=== PATIENT | male | born 1950 | race Caucasian/White ===

== ENCOUNTER 2018-03-26 16:35 | Inpatient (IN) | payer MEDICARE, OTHER ==
[~2018-03-26] VITALS: Ht 170.2 cm; Wt 90.4 kg
[2018-03-26] MEDS ORDERED: ASPIRIN 81 MG TAB PO STA (19:53)
[2018-03-26] MEDS ORDERED: SOD CHLORIDE 0.9% 500 ML IV STA (19:53)
--- NOTE | 2018-03-26 20:06 | ERD ---
ER Documentation Chief Complaint Chief Complaint Dr. Austin cunningham: 'TIA, chills, BP, constipation'. pt denies sx HPI This is a 67-year-old male who was sent by Dr. Wilkinson for admission. The patient was in [place] for 1 month and flew back 3 days ago and on the airplane developed hypertension with a systolic blood pressure of 230. Is having some dizziness and blurry vision at the time no chest pain or difficulty breathing. Since being home he is felt generalized weakness and malaise. No documented fevers. No cough, no dysuria no abdominal pain. The patient was sent by his physician for TIA, chills, loss of taste and confusion ROS All systems reviewed and are negative except as per history of present illness. Medications Home Meds Reported Medications Exenatide Microspheres (Bydureon Bcise) 2 Mg/0.85 Ml Auto.injct, 2 MG SQ Q7D LAST INJECTION 20 DAYS AGO 03/26/18 Amlodipine Besylate* (Amlodipine Besylate*) 10 Mg Tablet, 10 MG PO DAILY, #30 TAB 03/26/18 Insulin Glargine,Hum.rec.anlog ([place] Arzateostar) 300 Unit/1 Ml Insuln.pen, 100 UNIT SQ QHS, EA 03/26/18 Linaclotide (LINZESS) 145 Mcg Capsule, 145 MCG PO DAILY, #30 CAP 03/26/18 Mbgilf-Jutwguxw-Qmhwoyd* (Joey KU* 24,000) 24,000 L-76,000-120,000 Unit Capsule.dr, 1 CAP PO WITH MEALS, CAP 03/26/18 Sitagliptin Phos/Metformin HCl (Janumet 50-1,000 mg Tablet) 1 Each Tablet, 1 EACH PO DAILY, TAB 03/26/18 Memantine* (Namenda*) 5 Mg Tablet, 5 MG PO DAILY, #30 TAB 03/26/18 Rosuvastatin Calcium* (Crestor*) 10 Mg Tablet, 10 MG PO QHS, #30 TAB 03/26/18 Insulin Aspart* (Novolog Insulin Pen*) 100 Unit/Ml Soln, 30 UNIT SC WITH MEALS, EA 03/26/18 Clonidine Patch (CLONIDINE PATCH) Unknown Strength Patch, 1 PATCH TD Q7D, #4 PATCH.WK 03/26/18 Losartan-Hydrochlorothiazide (Losartan-HCTZ) 100-25 Mg Tab, 1 TAB PO DAILY, TAB 03/26/18 Terazosin Hcl* (Terazosin Hcl*) 5 Mg Capsule, 5 MG PO Q OTHER DAY, CAP 03/26/18 Spironolactone* (Aldactone*) 50 Mg Tablet, 50 MG PO BID, #60 TAB 03/26/18 Metoprolol Tartrate* (Lopressor*) 25 Mg Tab, 25 MG PO BID, #60 TAB 03/26/18 Allergies Allergies: Coded Allergies: No Known Allergy (Unverified , 03/26/18) PMhx/Soc History of Surgery: Yes (prostate) Hx Cardiac Disorders: Yes (HTN) Hx Miscellaneous Medical Probl: Yes (DM, gastritis) Hx Alcohol Use: Yes (occasional) Hx Substance Use: No Hx Tobacco Use: Yes Smoking Status: Former smoker FmHx Family History: No coronary disease Physical Exam Vitals Vital Signs Date Temp Pulse Resp B/P (MAP) Pulse Ox O2 O2 Flow FiO2 Time Delivery Rate 03/26/18 80 17 158/78 97 Room Air 21:12 (104) 03/26/18 83 22 166/84 98 Room Air 19:49 (111) 03/26/18 97.5 85 16 145/71 95 16:55 (95) Physical Exam Const: Well-developed, well-nourished Head: Atraumatic, normocephalic Eyes: Normal Conjunctiva, PERRLA, EOMI, normal sclera, no nystagmus ENT: Normal External Ears, Nose and Mouth, moist mucus membranes. Neck: Full range of motion. No meningismus, no lymphadenopathy. Resp: Clear to auscultation bilaterally, no wheezing, rhonchi, rales Cardio: Regular rate and rhythm, no murmurs, S1 S2 present Abd: Soft, non tender x 4, non distended. Normal bowel sounds, no guarding or rebound, no pulsitile abdominal masses or bruits Skin: No petechiae or rashes, no ecchymosis , no maculopapular rash Back: No midline or flank tenderness Ext: No cyanosis, or edema, FROM x 4, normal inspection, neurovascularly intact x 4 Neur: Awake and alert, STR 5/5 x 4, sensation intact x 4, no focal findings, cerebellum intact Psych: Normal Mood and Affect Result Diagram: 03/26/18199903/26/181999 Results 24 hrs Laboratory Tests Test 03/26/18 20:00 03/26/18 21:06 White Blood Count 9.5 10^3/ul Red Blood Count 5.12 10^6/ul Hemoglobin 14.5 g/dl Hematocrit 44.8 % Mean Corpuscular Volume 87.5 fl Mean Corpuscular Hemoglobin 28.3 pg Mean Corpuscular Hemoglobin Concent 32.4 g/dl Red Cell Distribution Width 13.9 % Platelet Count 242 10^3/UL Mean Platelet Volume 11.3 fl Immature Granulocytes % 1.500 % Neutrophils % 63.1 % Lymphocytes % 23.1 % Monocytes % 10.5 % Eosinophils % 1.1 % Basophils % 0.7 % Nucleated Red Blood Cells % 0.0 /100WBC Immature Granulocytes # 0.140 10^3/ul Neutrophils # 6.0 10^3/ul Lymphocytes # 2.2 10^3/ul Monocytes # 1.0 10^3/ul Eosinophils # 0.1 10^3/ul Basophils # 0.1 10^3/ul Nucleated Red Blood Cells # 0.0 10^3/ul Prothrombin Time 13.1 Sec Prothrombin Time Ratio 1.0 INR International Normalized Ratio 0.98 Activated Partial Thromboplast Time 23.1 Sec Urine Color YELLOW Urine Clarity CLEAR Urine pH 5.0 Urine Specific [place] 1.014 Urine Ketones NEGATIVE mg/dL Urine Nitrite NEGATIVE mg/dL Urine Bilirubin NEGATIVE mg/dL Urine Urobilinogen NEGATIVE mg/dL Urine Leukocyte Esterase NEGATIVE [place]/ul Urine Microscopic RBC 1 /HPF Urine Microscopic WBC 4 /HPF Urine Hemoglobin 1+ mg/dL Urine Glucose 3+ mg/dL Urine Total Protein 2+ mg/dl Sodium Level 135 mmol/L Potassium Level 5.0 mmol/L Chloride Level 95 mmol/L Carbon Dioxide Level 26 mmol/L Anion Gap 14 Blood Urea Nitrogen 38 mg/dl Creatinine 2.29 mg/dl Est Glomerular Filtrat Rate mL/min 29 mL/min Glucose Level 465 mg/dl Calcium Level 9.5 mg/dl Total Bilirubin 0.0 mg/dl Direct Bilirubin 0.00 mg/dl Indirect Bilirubin 0.0 mg/dl Aspartate Amino Transf (AST/SGOT) 37 IU/L Alanine Aminotransferase (ALT/SGPT) 23 IU/L Alkaline Phosphatase 98 IU/L Troponin I 0.052 ng/ml Total Protein 7.1 g/dl Albumin 3.9 g/dl Globulin 3.20 g/dl Albumin/Globulin Ratio 1.21 Bedside Glucose 435 mg/dL Current Medications Medications Dose Sig/Rex Start Time Status Last (Trade) Ordered Route PRN Stop Time Admin Dose Reason Admin Sodium 500 ml @ Q1H STAT 03/26/18 DC 03/26/18 Chloride 500 mls/hr IV 19:53 20:19 03/26/18 20:52 Aspirin 162 mg ONCE STAT 03/26/18 DC 03/26/18 (Aspirin) PO 19:53 20:19 03/26/18 19:56 Insulin 12 unit ONCE ONCE 03/26/18 DC 03/26/18 Human SC 21:00 21:08 Lispro 03/26/18 21:01 (Humalog) Procedures/MDM MR #: [id number] DOS: 03/26/181952 Ordering MD: MEHNAZ KRISHNAN DO Location: E/R Room/Bed: PROCEDURE: Portable chest x-ray. CLINICAL INDICATION: 67 years of age, male. Possible stroke TECHNIQUE: Portable AP view of the chest. COMPARISON: None available. FINDINGS: Medical devices: None. Mediastinum: Cardiomediastinal contours are normal. Lungs: Lung volumes are decreased with vascular crowding. There are nonspecific opacities at bilateral lung bases. Nodular opacity in the right lower lung zone likely represents a benign granuloma. Pleura: Negative for pleural effusion or pneumothorax. Bones: No acute bony abnormality. there are degenerative changes in the thoracic spine. Additional comment: None. IMPRESSION: Decreased lung volumes. Nonspecific opacities at bilateral lung bases may represent atelectasis, aspiration or pneumonia. RPTAT: HCTS Physician Bipin Date Time Electronically viewed and signed by Physician Bipin on 03/26/2018 20:21 CS/ CC: MEHNAZ KRISHNAN DO [id number] Patient: PRESTON KINSEY : 1950 Age: 67 Sex: M MR #: [id number] DOS: 03/26/181952 Ordering MD: MEHNAZ KRISHNAN DO Location: E/R Room/Bed: PROCEDURE: CT Brain without contrast. CLINICAL INDICATION: Stroke TECHNIQUE: A CT of the brain was performed on a multidetector CT scanner utilizing axial imaging from the skull base through the vertex without IV contrast. Multiplanar reformatted images were made. Images were reviewed on a PACS workstation. The CTDIvol is 38 mGy and the DLP is 634 mGycm. DICOM images are available. One or more of the following dose reduction techniques were utilized: 1.) Automated exposure control 2.) Adjustment of the mA +/- kV according to patient's size 3.) Use of iterative reconstruction technique. COMPARISON: None FINDINGS: There is moderate diffuse cerebral volume loss with sulcal and ventricular dilatation. No discrete extra-axial fluid collection or masses seen. Ventricles are in the midline and of normal configuration. There is periventricular and subcortical white matter disease in both cerebral hemispheres. No associated mass effect is present. There is preservation of normal whitten-white differentiat ion. No intracranial hemorrhage is seen. There is normal aeration in the visualized paranasal sinuses. IMPRESSION: Atrophy. White matter disease compatible with chronic small vessel ischemia. No intracranial hemorrhage, mass or evidence of acute transcortical infarct. .Vance Lawton MD, MD Date Time Electronically viewed and signed by .Vance Lawton MD, MD on 03/26/2018 20:14 .A/ CC: MEHNAZ KRISHNAN DO [id number] EKG: Rate/Rhythm: Normal sinus rhythm with PVCs, LVH QRS, ST, QT: NORMAL ND, QRS, prolonged QT] Impression: Abnormal EKG Patient's primary care physician will admit for observation for generalized weakness, prerenal azotemia, hypertension Departure Diagnosis: Primary Impression: Hyperglycemia Additional Impressions: Dehydration Generalized weakness Condition: Stable MEHNAZ KRISHNAN DO Mar 26, 2018 20:06
[2018-03-26] MEDS ORDERED: INSULIN LISPRO 100 UNIT/ML VIAL SC ONE (21:00)
[2018-03-26] MEDS ORDERED: SPIR50TA PO (21:09)
[2018-03-26] MEDS ORDERED: METO-448 PO (21:09)
[2018-03-26] MEDS ORDERED: LOSA1TAB25 PO (21:10)
[2018-03-26] MEDS ORDERED: TERA5CAP3 PO (21:10)
[2018-03-26] MEDS ORDERED: NOVO3I SC (21:12)
[2018-03-26] MEDS ORDERED: CLON1PAT2 TD (21:12)
[2018-03-26] MEDS ORDERED: MEMA5TAB PO (21:13)
[2018-03-26] MEDS ORDERED: ROSU10TA55 PO (21:13)
[2018-03-26] MEDS ORDERED: LIPA1CAP6 PO (21:14)
[2018-03-26] MEDS ORDERED: SITA1TAB5 PO (21:14)
[2018-03-26] MEDS ORDERED: LINA145C PO (21:14)
[2018-03-26] MEDS ORDERED: AMLO-147 PO (21:15)
[2018-03-26] MEDS ORDERED: INSU300I SQ (21:15)
[2018-03-26] MEDS ORDERED: EXEN2AUT SQ (21:17)
[2018-03-26] MEDS ORDERED: SOD CHLORIDE 0.9% 1,000 ML IV SCH (21:51)
[2018-03-26] MEDS ORDERED: ACETAMINOPHEN 325 MG TAB PO PRN (22:00)
[2018-03-26] MEDS ORDERED: ONDANSETRON 4 MG INJ IV PRN (22:00)
[2018-03-26 23:13] VITALS: PULSE 67
[2018-03-26 23:30] VITALS: Ht 170.2 cm; Wt 90.4 kg
[2018-03-26] MEDS ORDERED: CLONIDINE 0.2 MG/24 HR PATCH TRANSDERM SCH (23:30)
[2018-03-26] MEDS: DOCUSATE SODIUM 100 MG CAP PO SCH (23:30)
--- NOTE | 2018-03-26 23:45 | NUR ---
Pt came to the unit via bed from ER. Pt is alert and oriented x 4. Denies pain. No resp distress noted. On IVF. Called and spoke with Dr Menjivar. He said to just place the s/s mod and he will do the rest. Ok to change diet to CCHO and 2 gram Na.
[2018-03-27] VITALS (7 sets, daily range): BP systolic 118–150; BP diastolic 63–90; PULSE 71–78; RESP 18–20
[2018-03-27] MEDS ORDERED: DEXTROSE 50% 50 ML SYRINGE IV PRN ×2
[2018-03-27] MEDS ORDERED: GLUCOSE GEL 15 GRAM TUBE BUCCAL PRN
[2018-03-27] MEDS ORDERED: GLUCAGON 1 MG INJ IM PRN
[2018-03-27] MEDS ORDERED: GLUCOSE GEL 15 GRAM TUBE PO PRN ×2
--- NOTE | 2018-03-27 02:58 | NUR ---
Pt stated he had BM last noc. Voiding adequately. Verbalized he's so hungry. Given food as per pt's request. Bp imporved. Gave his Catapres patch. BP improved from earlier. Will continue monitor. Pt sleeping comfortably.
--- NOTE | 2018-03-27 07:41 | CONS ---
Assessment/Plan Assessment/Plan Assessment/Plan Consult dictated 1. Suspect underlying chronic renal failure sec to nephrosclerosis or diabetic renal dz, degree of proteinuria will help understand. 2. Acute renal failure sec to accelerated HBP or vol contraction. 3. Hx prostatism and related surgery, will r/o obstructive component 4. DM 5. HBP, now controlled. Consultation Date/Type/Reason Admit Date/Time Mar 26, 2018 at 21:52 Type of Consult Nephrology Date/Time of Note DATE: 03/27/18 TIME: 07:39 Past Medical History Home Meds Reported Medications Exenatide Microspheres (Bydureon Bcise) 2 Mg/0.85 Ml Auto.injct, 2 MG SQ Q7D LAST INJECTION 20 DAYS AGO 03/26/18 Amlodipine Besylate* (Amlodipine Besylate*) 10 Mg Tablet, 10 MG PO DAILY, #30 TAB 03/26/18 Insulin Glargine,Hum.rec.anlog ([place] Solostar) 300 Unit/1 Ml Insuln.pen, 100 UNIT SQ QHS, EA 03/26/18 Linaclotide (LINZESS) 145 Mcg Capsule, 145 MCG PO DAILY, #30 CAP 03/26/18 Lwpdia-Lmoyauvu-Whgzjma* (Joey KU* 24,000) 24,000 L-76,000-120,000 Unit Capsule., 1 CAP PO WITH MEALS, CAP 03/26/18 Sitagliptin Phos/Metformin HCl (Janumet 50-1,000 mg Tablet) 1 Each Tablet, 1 EACH PO DAILY, TAB 03/26/18 Memantine* (Namenda*) 5 Mg Tablet, 5 MG PO DAILY, #30 TAB 03/26/18 Rosuvastatin Calcium* (Crestor*) 10 Mg Tablet, 10 MG PO QHS, #30 TAB 03/26/18 Insulin Aspart* (Novolog Insulin Pen*) 100 Unit/Ml Soln, 30 UNIT SC WITH MEALS, EA 03/26/18 Clonidine Patch (CLONIDINE PATCH) Unknown Strength Patch, 1 PATCH TD Q7D, #4 PATCH.WK 03/26/18 Losartan-Hydrochlorothiazide (Losartan-HCTZ) 100-25 Mg Tab, 1 TAB PO DAILY, TAB 03/26/18 Terazosin Hcl* (Terazosin Hcl*) 5 Mg Capsule, 5 MG PO Q OTHER DAY, CAP 03/26/18 Spironolactone* (Aldactone*) 50 Mg Tablet, 50 MG PO BID, #60 TAB 03/26/18 Metoprolol Tartrate* (Lopressor*) 25 Mg Tab, 25 MG PO BID, #60 TAB 03/26/18 Medications Current Medications Sodium Chloride 1,000 ml @ 80 mls/hr [id number] IV Last administered on 03/26/18at 21:51; Admin Dose 80 MLS/HR; Start 03/26/18 at 21:51; Stop 03/27/18 at 10:20 Ondansetron HCl (Zofran Inj) 4 mg ER BRIDGE PRN IV nausea; Start 03/26/18 at 22:00; Stop 03/27/18 at 21:59 Acetaminophen (Tylenol Tab) 650 mg ER BRIDGE PRN PO fever; Start 03/26/18 at 22:00; Stop 03/27/18 at 21:59 Insulin Aspart (Novolog Insulin Pen) NOVOLOG *MODERATE* ALGORITHM WITH MEALS BEDTIME SC ; Start 03/27/18 at 08:00 Clonidine HCl (Catapres-Tts 2 Patch) 1 patch Q7D TRANSDERM Last administered on 03/27/18at 00:41; Admin Dose 1 PATCH; Start 03/26/18 at 23:30 Diltiazem HCl (Cardizem Cd) 120 mg DAILY PO ; Start 03/27/18 at 09:00 Aspirin (Ecotrin) 325 mg DAILY PO ; Start 03/27/18 at 09:00 Docusate Sodium (Colace) 100 mg BID PO ; Start 03/26/18 at 23:30 Gabapentin (Neurontin) 200 mg TID PO ; Start 03/27/18 at 09:00 Hydralazine HCl (Apresoline) 25 mg Q8H PRN PO ELEVATED SYSTOLIC BP; Start 03/26/18 at 23:30 Miscellaneous Information 1 ea NOTE XX ; Start 03/27/18 at 00:00 Glucose (Glutose) 15 gm Q15M PRN PO DECREASED GLUCOSE; Start 03/27/18 at 00:00 Glucose (Glutose) 22.5 gm Q15M PRN PO DECREASED GLUCOSE; Start 03/27/18 at 00:00 Dextrose (D50w Syringe) 25 ml Q15M PRN IV DECREASED GLUCOSE; Start 03/27/18 at 00:00 Dextrose (D50w Syringe) 50 ml Q15M PRN IV DECREASED GLUCOSE; Start 03/27/18 at 00:00 Glucagon (Glucagen) 1 mg Q15M PRN IM DECREASED GLUCOSE; Start 03/27/18 at 00:00 Glucose (Glutose) 15 gm Q15M PRN BUCCAL DECREASED GLUCOSE; Start 03/27/18 at 00:00 Allergies: Coded Allergies: No Known Allergy (Unverified , 03/26/18) Social History Smoking Status: Former smoker Exam/Review of Systems Vital Signs Vitals Vital Signs Date Temp Pulse Resp B/P (MAP) Pulse Ox O2 O2 Flow FiO2 Time Delivery Rate 03/27/18 97.9 78 20 150/90 94 Room Air 07:23 (110) Intake and Output 03/26/18 03/26/18 03/27/18 1414:59 22:59 06:59 IntakeIntake Total 500 ml 1240 ml BalanceBalance 500 ml 1240 ml Labs Result Diagram: 03/26/18199903/26/181999 Results 24hrs Laboratory Tests Test 03/26/18 20:00 03/26/18 21:06 White Blood Count 9.5 Red Blood Count 5.12 Hemoglobin 14.5 Hematocrit 44.8 Mean Corpuscular Volume 87.5 Mean Corpuscular Hemoglobin 28.3 L Mean Corpuscular Hemoglobin Concent 32.4 Red Cell Distribution Width 13.9 Platelet Count 242 Mean Platelet Volume 11.3 H Immature Granulocytes % 1.500 H Neutrophils % 63.1 Lymphocytes % 23.1 Monocytes % 10.5 Eosinophils % 1.1 Basophils % 0.7 Nucleated Red Blood Cells % 0.0 Immature Granulocytes # 0.140 H Neutrophils # 6.0 Lymphocytes # 2.2 Monocytes # 1.0 H Eosinophils # 0.1 Basophils # 0.1 Nucleated Red Blood Cells # 0.0 Prothrombin Time 13.1 Prothrombin Time Ratio 1.0 INR International Normalized Ratio 0.98 Activated Partial Thromboplast Time 23.1 Urine Color YELLOW Urine Clarity CLEAR Urine pH 5.0 Urine Specific [place] 1.014 Urine Ketones NEGATIVE Urine Nitrite NEGATIVE Urine Bilirubin NEGATIVE Urine Urobilinogen NEGATIVE Urine Leukocyte Esterase NEGATIVE Urine Microscopic RBC 1 Urine Microscopic WBC 4 Urine Hemoglobin 1+ H Urine Glucose 3+ H Urine Total Protein 2+ H Sodium Level 135 Potassium Level 5.0 Chloride Level 95 L Carbon Dioxide Level 26 Anion Gap 14 H Blood Urea Nitrogen 38 H Creatinine 2.29 H Est Glomerular Filtrat Rate mL/min 29 L Glucose Level 465 *H Calcium Level 9.5 Total Bilirubin 0.0 L Direct Bilirubin 0.00 Indirect Bilirubin 0.0 Aspartate Amino Transf (AST/SGOT) 37 Alanine Aminotransferase (ALT/SGPT) 23 Alkaline Phosphatase 98 Troponin I 0.052 Total Protein 7.1 Albumin 3.9 Globulin 3.20 Albumin/Globulin Ratio 1.21 Bedside Glucose 435 *H LIN LYNNE MD Mar 27, 2018 07:41
[2018-03-27] MEDS: INSULIN ASPART [NOVOLOG] 3 ML PEN SC SCH ×4 (08:08→20:30)
--- NOTE | 2018-03-27 08:26 | CONS ---
DATE OF ADMISSION: 03/26/2018 DATE OF CONSULTATION: 03/27/[address] Ackerman: Thank you very much for allowing me to evaluate this patient, who admitted with dizziness and blurred vision as well as accompanying weakness with evidence of renal insufficiency. HISTORICAL EVENTS: As you well know, the patient returned from a trip to [facility] 3 days ago while on the airplane developed dizziness and some blurred vision as well as some mild shortness of breath an d weakness. He was evaluated by you in your office yesterday and you thought hospitalization was nee ded. It is also mentioned that his blood pressure was elevated to the level of 230 systolic, unclear as to when that occurred. In any event, because of impaired renal function, you requested an evalua tion. Presently, he denies cough, wheezing, shortness of breath, nausea, vomiting, abdominal pain, o r chest pain. Appetite is slightly reduced over the last 2 to 3 days. He has had no dysuria, hematu genna, flank pain. PAST MEDICAL HISTORY: Includes; 1. Hypertension of long duration. 2. Diabetes of similarly long duration. 3. History of prostatism, undergoing surgery for the same about 3 years ago. 4. Hyperlipidemia. 5. History of gastritis. 6. History of coronary artery disease. SOCIAL HISTORY: Former smoker. He does drink alcohol. PHYSICAL EXAMINATION: VITAL SIGNS: Blood pressure 150/90, pulse 96, respirations were 18. He was afebrile. EYES: Extraocular muscles were full. NOSE, MOUTH, AND THROAT: Normal. NECK: Supple without jugular venous distention, thyroid enlargement or adenopathy. Carotids 2+, no bruits. LUNGS: Clear. HEART: Rhythm regular, no murmur. No third or fourth sound. ABDOMEN: Nontender. Liver and spleen were not palpable. No mass or tenderness were noted. EXTREMITIES: No edema. Calves were nontender. Pulses were reduced but feet were warm bilaterally. LABORATORY AND DIAGNOSTIC STUDIES: On admission, hematocrit was 44.8, white count was normal as was platelet count. Chemistries, electrolytes unrevealing, BUN 38, creatinine 2.29. Sugar 465. Liver t ests and albumin were normal. Pro-time and PTT were normal. Urinalysis 1+ blood, 3+ sugar, 2+ prote in. IMAGING STUDIES: Chest x-ray: No CHF. CT of the brain, white matter disease compatible with chroni c small vessel ischemia, no hemorrhage. IMPRESSIONS: 1. I suspect he has underlying mild renal insufficiency secondary to nephrosclerosis or diabetic jed al disease. The magnitude of proteinuria will help determine which is contributing or both. 2. Acute renal failure, either secondary to accelerated hypertension or volume contraction and obstr uctive component will be excluded. 3. Hypertension, controlled, much improved. PLAN: We will continue present IVs. Urinary protein albumin/creatinine ratio will be obtained along with random urinary sodium. Renal and postvoid bladder ultrasound has also been obtained. Dictated By: LIN LYNNE MD MR/NTS Conf#: [id number] DID#: [id number] CC: LESLY ACKERMAN MD;*EndCC*
[2018-03-27] MEDS ORDERED: DILTIAZEM (CD) 120 MG CAP PO SCH (09:00)
[2018-03-27] MEDS ORDERED: ASPIRIN (EC) 325 MG TAB PO SCH (09:00)
[2018-03-27] MEDS ORDERED: DILTIAZEM (CD) 180 MG CAP PO SCH (09:00)
[2018-03-27] MEDS: DOCUSATE SODIUM 100 MG CAP PO SCH ×2 (09:33→20:32)
[2018-03-27] MEDS: GABAPENTIN 100 MG CAP PO SCH ×3 (09:33→20:32)
--- NOTE | 2018-03-27 11:23 | CONS ---
Assessment/Plan Assessment/Plan Hospital Course (Demo Recall) HTN urgency: BP here 160s but up to 230 recently. Will restart home meds Acute on chronic renal failure: Last known Cr to me was 1.4 from labs 2017. On admission 2.3 and improved with 2.0. Likely dehydration due to poor PO intake and HCTZ DM HTN -restart home meds including: -amlodipine 10mg -losartan 100mg (should be ok as renal function improving) -hold HCTZ -continue metoprolol 25mg BID, d/c diltiazem -continue clonidine patch -continue IVF Consultation Date/Type/Reason Admit Date/Time Mar 26, 2018 at 21:52 Date of Consultation: Mar 27, 2018 Type of Consult Cardiology Reason for Consultation HTN urgency Requesting Provider: LESLY ACKERMAN MD Date/Time of Note DATE: 03/27/18 TIME: 11:15 Hx of Present Illness 67 yo M known to me from clinic visit 05/2017, with a h/o DM, HTN, CKD (previous Cr 1.4 in 2017), who presented with weakness, elevated BP. He was found to have acute on chronic renal failure. His BP has been 160s but he was recently traveling and his BP on the airplane was 230s. He notes that he has not had much of an appetite as food has been tasting strange recently. He also has not been drinking much fluid. He is on HCTZ at home. He feels better. Denies any current chest pain, SOB, edema. His Cr has improved from 2.3 to 2.0 with IVF. per hPI Past Medical History per hPI Home Meds Reported Medications Exenatide Microspheres (Bydureon Bcise) 2 Mg/0.85 Ml Auto.injct, 2 MG SQ Q7D LAST INJECTION 20 DAYS AGO 03/26/18 Amlodipine Besylate* (Amlodipine Besylate*) 10 Mg Tablet, 10 MG PO DAILY, #30 TAB 03/26/18 Insulin Glargine,Hum.rec.anlog (Nimo Guardado) 300 Unit/1 Ml Insuln.pen, 100 UNIT SQ QHS, EA 03/26/18 Linaclotide (LINZESS) 145 Mcg Capsule, 145 MCG PO DAILY, #30 CAP 03/26/18 Hcaqnj-Qczfguhr-Amulteh* (Joey DR* 24,000) 24,000 L-76,000-120,000 Unit Capsule.dr, 1 CAP PO WITH MEALS, CAP 03/26/18 Sitagliptin Phos/Metformin HCl (Janumet 50-1,000 mg Tablet) 1 Each Tablet, 1 EACH PO DAILY, TAB 03/26/18 Memantine* (Namenda*) 5 Mg Tablet, 5 MG PO DAILY, #30 TAB 03/26/18 Rosuvastatin Calcium* (Crestor*) 10 Mg Tablet, 10 MG PO QHS, #30 TAB 03/26/18 Insulin Aspart* (Novolog Insulin Pen*) 100 Unit/Ml Soln, 30 UNIT SC WITH MEALS, EA 03/26/18 Clonidine Patch (CLONIDINE PATCH) Unknown Strength Patch, 1 PATCH TD Q7D, #4 PATCH.WK 03/26/18 Losartan-Hydrochlorothiazide (Losartan-HCTZ) 100-25 Mg Tab, 1 TAB PO DAILY, TAB 03/26/18 Terazosin Hcl* (Terazosin Hcl*) 5 Mg Capsule, 5 MG PO Q OTHER DAY, CAP 03/26/18 Spironolactone* (Aldactone*) 50 Mg Tablet, 50 MG PO BID, #60 TAB 03/26/18 Metoprolol Tartrate* (Lopressor*) 25 Mg Tab, 25 MG PO BID, #60 TAB 03/26/18 Medications Current Medications Ondansetron HCl (Zofran Inj) 4 mg ER BRIDGE PRN IV nausea; Start 03/26/18 at 22:00; Stop 03/27/18 at 21:59 Acetaminophen (Tylenol Tab) 650 mg ER BRIDGE PRN PO fever; Start 03/26/18 at 22:00; Stop 03/27/18 at 21:59 Insulin Aspart (Novolog Insulin Pen) NOVOLOG *MODERATE* ALGORITHM WITH MEALS BEDTIME SC Last administered on 03/27/18at 08:08; Admin Dose 6 UNIT; Start 03/27/18 at 08:00 Clonidine HCl (Catapres-Tts 2 Patch) 1 patch Q7D TRANSDERM Last administered on 03/27/18at 00:41; Admin Dose 1 PATCH; Start 03/26/18 at 23:30 Aspirin (Ecotrin) 325 mg DAILY PO Last administered on 03/27/18at 09:33; Admin Dose 325 MG; Start 03/27/18 at 09:00 Docusate Sodium (Colace) 100 mg BID PO Last administered on 03/27/18at 09:33; Admin Dose 100 MG; Start 03/26/18 at 23:30 Gabapentin (Neurontin) 200 mg TID PO Last administered on 03/27/18at 09:33; Admin Dose 200 MG; Start 03/27/18 at 09:00 Hydralazine HCl (Apresoline) 25 mg Q8H PRN PO ELEVATED SYSTOLIC BP; Start 03/26/18 at 23:30 Miscellaneous Information 1 ea NOTE XX ; Start 03/27/18 at 00:00 Glucose (Glutose) 15 gm Q15M PRN PO DECREASED GLUCOSE; Start 03/27/18 at 00:00 Glucose (Glutose) 22.5 gm Q15M PRN PO DECREASED GLUCOSE; Start 03/27/18 at 00:00 Dextrose (D50w Syringe) 25 ml Q15M PRN IV DECREASED GLUCOSE; Start 03/27/18 at 00:00 Dextrose (D50w Syringe) 50 ml Q15M PRN IV DECREASED GLUCOSE; Start 03/27/18 at 00:00 Glucagon (Glucagen) 1 mg Q15M PRN IM DECREASED GLUCOSE; Start 03/27/18 at 00:00 Glucose (Glutose) 15 gm Q15M PRN BUCCAL DECREASED GLUCOSE; Start 03/27/18 at 00:00 Diltiazem HCl (Cardizem Cd) 180 mg DAILY PO ; Start 03/27/18 at 09:00 Allergies: Coded Allergies: No Known Allergy (Unverified , 03/26/18) Social History Smoking Status: Former smoker Exam/Review of Systems Exam Vitals Vital Signs Date Temp Pulse Resp B/P (MAP) Pulse Ox O2 O2 Flow FiO2 Time Delivery Rate 03/27/18 97.9 78 20 150/90 94 Room Air 07:23 (110) Intake and Output 03/26/18 03/26/18 03/27/18 1515:00 23:00 07:00 IntakeIntake Total 500 ml 1240 ml BalanceBalance 500 ml 1240 ml Constitutional: alert, oriented Psych: no complaints, nl mood/affect Head: normocephalic, atraumatic Neck: supple; No jvd Respiratory: crackles/rales (at bases, likely atelectasis ); No clear to auscultation Cardiovascular: regular rate and rhythm; No edema, No systolic murmur Gastrointestinal: soft, non-tender; No distended Musculoskeletal: nl extremities to inspection Neurological: nl mental status, nl speech Results Result Diagram: 03/27/18 0801 03/27/18 0801 Results 24hrs Laboratory Tests Test 03/26/18 20:00 03/26/18 21:06 03/27/18 08:01 White Blood Count 9.5 7.7 Red Blood Count 5.12 4.95 Hemoglobin 14.5 14.1 Hematocrit 44.8 43.1 Mean Corpuscular Volume 87.5 87.1 Mean Corpuscular Hemoglobin 28.3 L 28.5 L Mean Corpuscular Hemoglobin Concent 32.4 32.7 Red Cell Distribution Width 13.9 14.0 Platelet Count 242 206 Mean Platelet Volume 11.3 H 11.4 H Immature Granulocytes % 1.500 H 1.200 H Neutrophils % 63.1 63.0 Lymphocytes % 23.1 23.6 Monocytes % 10.5 10.1 Eosinophils % 1.1 1.2 Basophils % 0.7 0.9 Nucleated Red Blood Cells % 0.0 0.0 Immature Granulocytes # 0.140 H 0.090 H Neutrophils # 6.0 4.9 Lymphocytes # 2.2 1.8 Monocytes # 1.0 H 0.8 Eosinophils # 0.1 0.1 Basophils # 0.1 0.1 Nucleated Red Blood Cells # 0.0 0.0 Prothrombin Time 13.1 Prothrombin Time Ratio 1.0 INR International Normalized Ratio 0.98 Activated Partial Thromboplast Time 23.1 Urine Color YELLOW Urine Clarity CLEAR Urine pH 5.0 Urine Specific [place] 1.014 Urine Ketones NEGATIVE Urine Nitrite NEGATIVE Urine Bilirubin NEGATIVE Urine Urobilinogen NEGATIVE Urine Leukocyte Esterase NEGATIVE Urine Microscopic RBC 1 Urine Microscopic WBC 4 Urine Hemoglobin 1+ H Urine Glucose 3+ H Urine Total Protein 2+ H Sodium Level 135 140 Potassium Level 5.0 4.6 Chloride Level 95 L 100 Carbon Dioxide Level 26 28 Anion Gap 14 H 12 Blood Urea Nitrogen 38 H 35 H Creatinine 2.29 H 1.96 H Est Glomerular Filtrat Rate mL/min 29 L 34 L Glucose Level 465 *H 282 #H Calcium Level 9.5 9.1 Total Bilirubin 0.0 L Direct Bilirubin 0.00 Indirect Bilirubin 0.0 Aspartate Amino Transf (AST/SGOT) 37 Alanine Aminotransferase (ALT/SGPT) 23 Alkaline Phosphatase 98 Troponin I 0.052 Total Protein 7.1 Albumin 3.9 Globulin 3.20 Albumin/Globulin Ratio 1.21 Bedside Glucose 435 *H 260 H Phosphorus Level 4.0 Magnesium Level 1.8 TIMMY BUSTAMANTE Mar 27, 2018 11:23
[2018-03-27] MEDS: METOPROLOL 25 MG TAB PO SCH ×2 (13:37→20:33)
[2018-03-27] MEDS: LOSARTAN 50 MG TAB PO SCH (13:38)
[2018-03-27] MEDS: AMLODIPINE 10 MG TAB PO SCH (13:39)
--- NOTE | 2018-03-27 19:47 | HP ---
Date/Time of Note Date/Time of Note DATE: 03/27/18 TIME: 19:31 Assessment/Plan VTE Prophylaxis Risk score (from Ns)>0 risk: 1 SCD applied (from [facility]): No SCD contraindicated: low risk/ambulating Pharmacological prophylaxis: LMWH Lines/Catheters IV Catheter Type (from [facility]): Peripheral IV Central line still needed: No Urinary Cath still in place: No Reason Cath still needed: urinary retention Assessment/Plan Assessment/Plan 1. Acute on chronic kidney disease stage III 2. 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 Atherosclerotic cardiovascular disease 5. Irregular heartbeats 6. Unstable gait 7. Status post cataract ectomy 8. COPD 9. Congestive heart failure systolic and diastolic 10. Dizziness 11. Dyslipidemia 12. Hypertensive heart disease none controlled mainly due to noncompliance 13. Osteoarthritis of multiple joints 14. Low back pain 15. Hemorrhoidal disease 16. Anxiety with panic attacks 17. Claustrophobia 18. Major depression with worsening of memory 19. BPH with dysuria and incontinence 20.Recurrent uti's 21.Incomplete data. Result Diagram: 03/27/18 0801 03/27/18 0801 Results 24hrs Laboratory Tests Test 03/26/18 20:00 03/26/18 21:06 03/27/18 08:01 03/27/18 12:44 White Blood Count 9.5 7.7 Red Blood Count 5.12 4.95 Hemoglobin 14.5 14.1 Hematocrit 44.8 43.1 Mean Corpuscular 87.5 87.1 Volume Mean Corpuscular 28.3 L 28.5 L Hemoglobin Mean Corpuscular 32.4 32.7 Hemoglobin Concent Red Cell 13.9 14.0 Distribution Width Platelet Count 242 206 Mean Platelet Volume 11.3 H 11.4 H Immature 1.500 H 1.200 H Granulocytes % Neutrophils % 63.1 63.0 Lymphocytes % 23.1 23.6 Monocytes % 10.5 10.1 Eosinophils % 1.1 1.2 Basophils % 0.7 0.9 Nucleated Red Blood 0.0 0.0 Cells % Immature 0.140 H 0.090 H Granulocytes # Neutrophils # 6.0 4.9 Lymphocytes # 2.2 1.8 Monocytes # 1.0 H 0.8 Eosinophils # 0.1 0.1 Basophils # 0.1 0.1 Nucleated Red Blood 0.0 0.0 Cells # Prothrombin Time 13.1 Prothrombin Time 1.0 Ratio INR International 0.98 Normalized Ratio Activated 23.1 Partial Thromboplast Time Urine Color YELLOW Urine Clarity CLEAR Urine pH 5.0 Urine Specific 1.014 Ruth Urine Ketones NEGATIVE Urine Nitrite NEGATIVE Urine Bilirubin NEGATIVE Urine Urobilinogen NEGATIVE Urine Leukocyte NEGATIVE Esterase Urine Microscopic 1 RBC Urine Microscopic 4 WBC Urine Hemoglobin 1+ H Urine Glucose 3+ H Urine Total Protein 2+ H Sodium Level 135 140 Potassium Level 5.0 4.6 Chloride Level 95 L 100 Carbon Dioxide Level 26 28 Anion Gap 14 H 12 Blood Urea Nitrogen 38 H 35 H Creatinine 2.29 H 1.96 H Est Glomerular 29 L 34 L Filtrat Rate mL/min Glucose Level 465 *H 282 #H Calcium Level 9.5 9.1 Total Bilirubin 0.0 L Direct Bilirubin 0.00 Indirect Bilirubin 0.0 Aspartate Amino 37 Transf (AST/SGOT) Alanine 23 Aminotransferase (AL T/SGPT) Alkaline Phosphatase 98 Troponin I 0.052 Total Protein 7.1 Albumin 3.9 Globulin 3.20 Albumin/Globulin 1.21 Ratio Bedside Glucose 435 *H 260 H 280 H Phosphorus Level 4.0 Magnesium Level 1.8 Test 03/27/18 17:13 Bedside Glucose 295 H HPI/ROS Admit Date/Time Admit Date/Time Mar 26, 2018 at 21:52 Hx of Present Illness I do not understand what is going on with me I am getting confused. My shortness of breath got worse. I cannot walk straight. The patient came to my office yesterday during daytime stating that he arrived from [facility] days ago. While in the airplane he had hypertensive urgency with worsening of her shortness of breath he panicked. He was given oxygen and medical cares were provided by physician who was among passengers. Paramedics service was waiting for him in the [place]. Family refused to take him to the hospital he was brought home. His blood sugar was above 300. Pressure continues to be at the range of 180-200. He developed a worsening of shortness of breath and edema both legs. By coming to the office it became evident that his gait was unsteady and he was complaining also for forgetfulness. Usually patient was bringing his medication every time when he was coming to the office at this time he forgot. I attempted to clarify prepped in the needle and postprandial blood sugar level I was unable to get it. Due to her confusion uncontrolled blood pressure and blood sugar knowing his memory impairment being there in the past I decided to admit the patient to hospital and recommended. Patient refused to come. We agreed then when condition worsens then he was changed and decision to come to the emergency room which he did. It was evident that he had a acute exacerbation of chronic renal failure with elevation of the creatinine 2.6 patient already improved by decreasing to the level of 1.8. Blood sugar also is better controlled. 0.2 clonidine patch was the main blood pressure lowering medication and systolic is not the range of about 160. Patient already feels better blood sugar is getting controlled for adjustment we need 1 more day. Irregular heartbeats are bothering him too. ROS Subjective hx not possible: pt critical Constitutional: improved, chills, diaphoresis, disoriented, nausea, poor po Eyes: discharge, redness, visual change; No no complaints, No pain, No other ENT: pain, congestion, dysphagia, sore throat; No no complaints, No bleeding, No discharge, No other Respiratory: cough, pleuritic pain, shortness of breath, sputum; No no complaints, No pain, No wheezing, No other Cardiovascular: chest pain, edema, lightheadedness, orthopenea, palpitations, paroxysmal nocturnal dyspnea; No no complaints, No other Gastrointestinal: constipation, decreased appetite, flatus, nausea, passing sto ol; No no complaints, No pain, No blood, No diarrhea, No vomiting, No other Genitourinary: flank pain; No no complaints, No bleeding, No dysuria, No discharge, No hematuria, No other Musculoskeletal: back pain, bone/joint pain, neck pain; No no complaints, No restricted range of motion, No swelling, No other Skin: bruising, pruritis, rash Neurologic: confusion, headache, syncope; No no complaints, No dizziness, No focal-weakness, No seizure, No other Endocrine: polyuria, polydypsia, dry skin, temp intolerance, weight change; No no complaints, No other Lymphatic: No no complaints, No adenopathy, No tender nodes, No lymphadema, No other Psychological: anxiety, confusion, depression; No no complaints, No nl mood/affect, No suicidal, No other Immunologic: No no complaints, No immunodeficiency, No pruritis, No rhinitis, No urticaria, No other PMH/Family/Social Past Medical History Medical History: angina, congestive heart failure, coronary artery disease, d iabetes, GERD, high cholesterol, hypertension, irritable bowel syndrome, renal disease, urinary tract infection Medications Current Medications Ondansetron HCl (Zofran Inj) 4 mg ER BRIDGE PRN IV nausea; Start 03/26/18 at 22:00; Stop 03/27/18 at 21:59 Acetaminophen (Tylenol Tab) 650 mg ER BRIDGE PRN PO fever; Start 03/26/18 at 22:00; Stop 03/27/18 at 21:59 Insulin Aspart (Novolog Insulin Pen) NOVOLOG *MODERATE* ALGORITHM WITH MEALS BEDTIME SC Last administered on 03/27/18at 17:23; Admin Dose 8 UNIT; Start 03/27/18 at 08:00 Clonidine HCl (Catapres-Tts 2 Patch) 1 patch Q7D TRANSDERM Last administered on 03/27/18at 00:41; Admin Dose 1 PATCH; Start 03/26/18 at 23:30 Docusate Sodium (Colace) 100 mg BID PO Last administered on 03/27/18at 09:33; Admin Dose 100 MG; Start 03/26/18 at 23:30 Gabapentin (Neurontin) 200 mg TID PO Last administered on 03/27/18at 13:36; Admin Dose 200 MG; Start 03/27/18 at 09:00 Hydralazine HCl (Apresoline) 25 mg Q8H PRN PO ELEVATED SYSTOLIC BP Last administered on 03/27/18at 11:32; Admin Dose 25 MG; Start 03/26/18 at 23:30 Miscellaneous Information 1 ea NOTE XX ; Start 03/27/18 at 00:00 Glucose (Glutose) 15 gm Q15M PRN PO DECREASED GLUCOSE; Start 03/27/18 at 00:00 Glucose (Glutose) 22.5 gm Q15M PRN PO DECREASED GLUCOSE; Start 03/27/18 at 00:00 Dextrose (D50w Syringe) 25 ml Q15M PRN IV DECREASED GLUCOSE; Start 03/27/18 at 00:00 Dextrose (D50w Syringe) 50 ml Q15M PRN IV DECREASED GLUCOSE; Start 03/27/18 at 00:00 Glucagon (Glucagen) 1 mg Q15M PRN IM DECREASED GLUCOSE; Start 03/27/18 at 00:00 Glucose (Glutose) 15 gm Q15M PRN BUCCAL DECREASED GLUCOSE; Start 03/27/18 at 00:00 Aspirin (Aspirin) 81 mg DAILY PO ; Start 03/28/18 at 09:00 Amlodipine Besylate (Norvasc) 10 mg DAILY PO Last administered on 03/27/18at 13:39; Admin Dose 10 MG; Start 03/27/18 at 11:30 Losartan Potassium (Cozaar) 100 mg DAILY PO Last administered on 03/27/18at 13:38; Admin Dose 100 MG; Start 03/27/18 at 11:30 Metoprolol Tartrate (Lopressor) 25 mg BID PO Last administered on 03/27/18at 13:37; Admin Dose 25 MG; Start 03/27/18 at 11:30 Coded Allergies: No Known Allergy (Unverified , 03/26/18) Past Surgical History Past Surgical Hx: angioplasty Family History Significant Family History: heart disease, diabetes Social History Alcohol Use: none Smoking Status: Former smoker Drug Use: none Exam/Review of Systems Vital Signs Vitals Vital Signs Date Temp Pulse Resp B/P (MAP) Pulse Ox O2 O2 Flow FiO2 Time Delivery Rate 03/27/18 71 16:00 03/27/18 98.8 20 144/70 95 Room Air 15:22 (94) Intake and Output 03/26/18 03/26/18 03/27/18 1414:59 22:59 06:59 IntakeIntake Total 500 ml 1240 ml BalanceBalance 500 ml 1240 ml Exam Constitutional: alert, oriented, well developed, distress, frail; No non-verbal, No other Psych: anxiety, confusion, depression; No no complaints, No nl mood/affect, No suicidal, No other Head: normocephalic, atraumatic; No lacerations, No hematomas, No other Eyes: EOMI, nl lids, PERRL; No nl conjunctiva, No nl sclera, No icteric, No fundi, disc, No other ENMT: nl nasal mucosa & septum; No nl external ears & nose, No nl lips & teeth, No mucosa pink and moist, No intubated, No tympanic membranes, No other Neck: jvd, bruits, nuchal rigidity Respiratory: normal air movement, crackles/rales, diminished breath sounds; No clear to auscultation, No congested cough, No intercostal retraction, No labored breathing, No respirations, No tactile fremitus, No wheezing, No other Cardiovascular: nl pulses, bruits, edema, jugular venous distention (JVD), murmurs/extra sounds, systolic murmur; No regular rate and rhythm, No diastolic murmur, No gallop, No irregular rhythm, No rub, No S3, No S4, No other Gastrointestinal: soft, nl liver, spleen, bowel sounds; No non-tender, No ascites, No distended, No firm, No hepatomegaly, No mass, No rebound or guarding, No splenomegaly, No surgical scars, No tender, No other Genitourinary - Male: nl penis, nl scrotum, CVA tenderness Genitourinary - Female: No nl adnexae, No nl external genitalia, No CMT, No CVA tenderness, No uterus, No other Musculoskeletal: joint tenderness, muscle tone, muscle weakness, other (His gait is unstable he is afraid of getting up becomes dizzy but denies having episodes of fall.); No nl extremities to inspection, No nl gait and stance, No range of motion, No spine non-tender, No swelling Extremities: normal pulses (Pulses are irregular palpable diminished in the posterior dorsalis pedis projection.), edema; No calf tenderness, No cyanosis, No clubbing, No pitting pedal edema, No palpable cord, No tenderness, No other Neurological: 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
[2018-03-28] VITALS (12 sets, daily range): BP systolic 131–157; BP diastolic 70–84; PULSE 62–72; RESP 18–19
--- NOTE | 2018-03-28 02:00 | NUR ---
PATIENT REFUSED 0200 BLOOD SUGAR CHECK.
--- NOTE | 2018-03-28 06:19 | NUR ---
END OF THE SHIFT SUMMARY: PATIENT IS A/A/O X 4. SR IN [employer]. ON ROOM AIR, WITH O2 SAT AT 94-95%. NO SHORTNESS OF BREATH NOTED. AMBULATES TO THE BR AND BACK TO BED WITH STEADY GAIT WITH SUPERVISION.SKIN INTACT. REFUSED 0200 BLOOD SUGAR CHECK. SLEPT MOST OF THE SHIFT. PLAN FOR PT TO DISCHARGE HOME TODAY.WILL ENDORSED TO AM NURSE.
[2018-03-28] MEDS ORDERED: INSULIN GLARGINE [LANTus] (100 UNITS/ML) SYG SC SCH ×2 (08:00→23:00)
[2018-03-28] MEDS: INSULIN ASPART [NOVOLOG] 3 ML PEN SC SCH ×3 (08:17→17:32)
[2018-03-28] MEDS: ASPIRIN 81 MG TAB PO SCH (08:19)
[2018-03-28] MEDS: METOPROLOL 25 MG TAB PO SCH ×2 (08:19→20:39)
[2018-03-28] MEDS: DOCUSATE SODIUM 100 MG CAP PO SCH ×2 (08:19→20:36)
[2018-03-28] MEDS: GABAPENTIN 100 MG CAP PO SCH ×3 (08:20→20:36)
[2018-03-28] MEDS: AMLODIPINE 10 MG TAB PO SCH (08:20)
[2018-03-28] MEDS: LOSARTAN 50 MG TAB PO SCH (08:20)
--- NOTE | 2018-03-28 08:32 | RADRPT ---
Echocardiogram Report Patient Name: PRESTON KINSEY Gender: Male Date: 1950 Study Date: 27-Mar-2018 Rope Cutter: Theron Quezada [facility] Location: 632-A Ref. Physician: TIMMY JARA Quality: Adequate Procedures: Transthoracic echocardiogram with complete 2D, M-Mode, and doppler examination. Indications: Dyspnea, HTN urgency. 2D/M Mode Doppler Measurement Value Normal Ranges Measurement Value Normal Ranges LVIDd 2D 3.7 3.5 - 5.6 cm AV Peak Kelechi 1.2 m/sec LVIDs 2D 2.2 2.1 - 4.1 cm AV Peak PG 6.0 mmHg FS 2D 39.5 % LVOT Peak Kelechi 1.0 m/sec LVPWd 2D 1.3 0.6 - 1.1 cm LVOT Peak PG 4.0 mmHg IVSd 2D 1.9 0.6 - 1.1 cm MV E Peak Kelechi 0.6 m/sec IVS/LVPW 2D 1.5 MV A Peak Kelechi 1.0 m/sec AoR Diam 2D 2.8 2.0 - 3.7 cm MV E/A 0.6 LA/Ao 2D 1 0 - 1 MV Decel Time 225 msec EDV 2D 49.4 cm3 MV E/A 0.6 ESV 2D 10.9 cm3 TR Peak Kelechi 3.0 m/sec LA Dimen 2D 4.0 2.3 - 4.0 cm TR Peak PG 36.0 mmHg RVSP 39.0 mmHg Findings Left Ventricle: Normal left ventricular systolic function. Normal left ventricular cavity size. Moderate concentric left ventricular hypertrophy. Ejection fraction is visually estimated at 65 %. Tissue Doppler/Mitral Doppler indices are consistent with impaired relaxation (Stage I diastolic dysfunction). Right Ventricle: Normal right ventricular size. Normal right ventricular systolic function. Left Atrium: There is mild enlargement of left atrium. Right Atrium: The right atrium is normal in size. Mitral Valve: Normal appearance and function of the mitral valve with trace physiologic regurgitation. Aortic Valve: Normal appearance of the aortic valve. No significant aortic stenosis or insufficiency. Tricuspid Valve: Normal appearance of the tricuspid valve. Estimated peak PA systolic pressure 39 mmHg. There is trace to mild tricuspid regurgitation. Pulmonic Valve: Pulmonic valve not well visualized. There is trace pulmonic regurgitation. Pericardium: Normal pericardium with no significant pericardial effusion. Aorta: Normal aortic root. IVC: Normal size and normal respiratory collapse consistent with normal right atrial pressure. Conclusions Normal left ventricular systolic function. Normal left ventricular cavity size. Moderate concentric left ventricular hypertrophy. Ejection fraction is visually estimated at 65 %. Tissue Doppler/Mitral Doppler indices are consistent with impaired relaxation (Stage I diastolic dysfunction). No significant valvular stenosis or regurgitation seen. Normal appearance of the tricuspid valve. Estimated peak PA systolic pressure 39 mmHg. There is trace to mild tricuspid regurgitation. Normal size and normal respiratory collapse consistent with normal right atrial pressure. Electronically Signed By: Timmy Jara 28-Mar-2018 08:31:26 -0800 Patient Name: PRESTON KINSEY Study Date: 27-Mar-2018 [id number]
--- NOTE | 2018-03-28 09:01 | PN ---
Date/Time of Note Date/Time of Note DATE: 03/28/18 TIME: 08:48 Assessment/Plan VTE Prophylaxis Risk score (from Ns)>0 risk: 3 SCD applied (from Ns): No SCD contraindicated: low risk/ambulating Pharmacological prophylaxis: LMWH Lines/Catheters IV Catheter Type (from [facility]): [place] [employer] line still needed: No Urinary Cath still in place: No Reason Cath still needed: urinary retention Assessment/Plan Assessment/Plan 1. Acute on chronic kidney disease stage III- improving 2. 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 Atherosclerotic cardiovascular disease 5. Irregular heartbeats 6. Unstable gait 7. Status post cataract ectomy 8. COPD 9. Congestive heart failure systolic and diastolic 10. Dizziness 11. Dyslipidemia 12. Hypertensive heart disease none controlled mainly due to noncompliance 13. Osteoarthritis of multiple joints 14. Low back pain 15. Hemorrhoidal disease 16. Anxiety with panic attacks 17. Claustrophobia 18. Major depression with worsening of memory 19. BPH with dysuria and incontinence 20.Recurrent uti's 21.Incomplete data. Result Diagram: Result Diagram: 03/28/18 0529 03/28/18 0529 Results 24hrs Laboratory Tests Test 03/27/18 12:44 03/27/18 17:13 03/27/18 20:27 03/28/18 05:29 Bedside Glucose 280 H 295 H 362 H White Blood Count 7.2 Red Blood Count 5.32 Hemoglobin 15.1 Hematocrit 46.9 Mean Corpuscular 88.2 Volume Mean Corpuscular 28.4 L Hemoglobin Mean Corpuscular 32.2 Hemoglobin Concent Red Cell 14.1 Distribution Width Platelet Count 218 Mean Platelet Volume 11.4 H Immature 1.700 H Granulocytes % Neutrophils % 60.0 Lymphocytes % 23.5 Monocytes % 11.6 H Eosinophils % 2.1 Basophils % 1.1 Nucleated Red Blood 0.0 Cells % Immature 0.120 H Granulocytes # Neutrophils # 4.3 Lymphocytes # 1.7 Monocytes # 0.8 Eosinophils # 0.2 Basophils # 0.1 Nucleated Red Blood 0.0 Cells # Sodium Level 140 Potassium Level 5.0 Chloride Level 99 Carbon Dioxide Level 24 Anion Gap 17 H Blood Urea Nitrogen 37 H Creatinine 1.83 H Est Glomerular 37 L Filtrat Rate mL/min Glucose Level 373 H Calcium Level 9.2 Phosphorus Level 4.0 Magnesium Level 2.0 Test 03/28/18 07:54 Bedside Glucose 393 H Subjective 24 Hr Interval Summary Free Text/Dictation I slept the first time last 6 days. I don't know what happened. I am forgetful.Some fear is in me. Constitutional: improved, chills, disoriented, poor po, requiring IVF, requiring O2; No no complaints, No diaphoresis, No febrile, No other Eyes: redness; No no complaints, No pain, No discharge, No visual change, No other ENT: congestion; No no complaints, No bleeding, No pain, No discharge, No dysphagia, No sore throat, No other Respiratory: cough, pleuritic pain, shortness of breath; No no complaints, No pain, No sputum, No wheezing, No other Cardiovascular: No no complaints, No chest pain, No edema, No lightheadedness, No orthopenea, No palpitations, No paroxysmal nocturnal dyspnea, No other Gastrointestinal: constipation; No no complaints, No pain, No blood, No decreased appetite, No diarrhea, No flatus, No nausea, No passing stool, No vomiting, No other Genitourinary: dysuria; No no complaints, No bleeding, No discharge, No flank pain, No hematuria, No other Musculoskeletal: back pain, bone/joint pain Skin: pruritis, rash; No no complaints, No bruising, No erythema, No laceration, No skin lesions, No other Neurologic: confusion, dizziness; No no complaints, No focal-weakness, No headache, No syncope, No seizure, No other Lymphatic: No no complaints, No adenopathy, No tender nodes, No lymphadema, No other Psychological: anxiety, confusion, depression; No no complaints, No nl mood/affect, No suicidal, No other Immunologic: pruritis Exam/Review of Systems Exam Vitals Vital Signs Date Temp Pulse Resp B/P (MAP) Pulse Ox O2 O2 Flow FiO2 Time Delivery Rate 03/28/18 98.3 72 19 157/84 94 07:19 (108) 03/27/18 Room Air 20:00 Intake and Output 03/27/18 03/27/18 03/28/18 1515:00 23:00 07:00 IntakeIntake Total 950 ml 980 ml BalanceBalance 950 ml 980 ml Constitutional: alert, oriented, well developed, distress, frail, obese; No non-verbal, No other Psych: anxiety, depression; No no complaints, No nl mood/affect, No confusion, No suicidal, No other Head: normocephalic, atraumatic; No lacerations, No hematomas, No other Eyes: EOMI, nl lids, PERRL; No nl conjunctiva, No nl sclera, No icteric, No fundi, disc, No other ENMT: No nl external ears & nose, No nl lips & teeth, No nl nasal mucosa & septum, No mucosa pink and moist, No intubated, No tympanic membranes, No other Neck: non-tender, bruits Respiratory: clear to auscultation, normal air movement; No congested cough, No crackles/rales, No diminished breath sounds, No intercostal retraction, No labored breathing, No respirations, No tactile fremitus, No wheezing, No other Cardiovascular: regular rate and rhythm, nl pulses, bruits, edema, jugular venous distention (JVD), systolic murmur Gastrointestinal: soft, nl liver, spleen, bowel sounds, distended Genitourinary - Male: nl penis, nl scrotum; No CVA tenderness, No discharge, No other Musculoskeletal: joint tenderness, muscle tone, muscle weakness; No nl extremities to inspection, No nl gait and stance, No range of motion, No spine non-tender, No swelling, No other 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.), confused; No nl mental status, No nl speech, No nl strength, No DTR's symmetric, No focal weakness, No lethargic, No numbness, No reflexes, No unresponsive, No other Skin: nl turgor; No rash or lesions, No diaphoresis, No ecchymosis, No laceration, No puncture, No other Lymph: nl lymph nodes, enlarged; No nontender, No other Results Results 24hrs Laboratory Tests Test 03/27/18 12:44 03/27/18 17:13 03/27/18 20:27 03/28/18 05:29 Bedside Glucose 280 H 295 H 362 H White Blood Count 7.2 Red Blood Count 5.32 Hemoglobin 15.1 Hematocrit 46.9 Mean Corpuscular 88.2 Volume Mean Corpuscular 28.4 L Hemoglobin Mean Corpuscular 32.2 Hemoglobin Concent Red Cell 14.1 Distribution Width Platelet Count 218 Mean Platelet Volume 11.4 H Immature 1.700 H Granulocytes % Neutrophils % 60.0 Lymphocytes % 23.5 Monocytes % 11.6 H Eosinophils % 2.1 Basophils % 1.1 Nucleated Red Blood 0.0 Cells % Immature 0.120 H Granulocytes # Neutrophils # 4.3 Lymphocytes # 1.7 Monocytes # 0.8 Eosinophils # 0.2 Basophils # 0.1 Nucleated Red Blood 0.0 Cells # Sodium Level 140 Potassium Level 5.0 Chloride Level 99 Carbon Dioxide Level 24 Anion Gap 17 H Blood Urea Nitrogen 37 H Creatinine 1.83 H Est Glomerular 37 L Filtrat Rate mL/min Glucose Level 373 H Calcium Level 9.2 Phosphorus Level 4.0 Magnesium Level 2.0 Test 03/28/18 07:54 Bedside Glucose 393 H Medications Medication Current Medications Insulin Aspart (Novolog Insulin Pen) NOVOLOG *MODERATE* ALGORITHM WITH MEALS BEDTIME SC Last administered on 03/28/18at 08:17; Admin Dose 12 UNIT; Start 03/27/18 at 08:00 Clonidine HCl (Catapres-Tts 2 Patch) 1 patch Q7D TRANSDERM Last administered on 03/27/18at 00:41; Admin Dose 1 PATCH; Start 03/26/18 at 23:30 Docusate Sodium (Colace) 100 mg BID PO Last administered on 03/28/18at 08:19; Admin Dose 100 MG; Start 03/26/18 at 23:30 Gabapentin (Neurontin) 200 mg TID PO Last administered on 03/28/18at 08:20; Admin Dose 200 MG; Start 03/27/18 at 09:00 Hydralazine HCl (Apresoline) 25 mg Q8H PRN PO ELEVATED SYSTOLIC BP Last administered on 03/27/18at 11:32; Admin Dose 25 MG; Start 03/26/18 at 23:30 Miscellaneous Information 1 ea NOTE XX ; Start 03/27/18 at 00:00 Glucose (Glutose) 15 gm Q15M PRN PO DECREASED GLUCOSE; Start 03/27/18 at 00:00 Glucose (Glutose) 22.5 gm Q15M PRN PO DECREASED GLUCOSE; Start 03/27/18 at 00:00 Dextrose (D50w Syringe) 25 ml Q15M PRN IV DECREASED GLUCOSE; Start 03/27/18 at 00:00 Dextrose (D50w Syringe) 50 ml Q15M PRN IV DECREASED GLUCOSE; Start 03/27/18 at 00:00 Glucagon (Glucagen) 1 mg Q15M PRN IM DECREASED GLUCOSE; Start 03/27/18 at 00:00 Glucose (Glutose) 15 gm Q15M PRN BUCCAL DECREASED GLUCOSE; Start 03/27/18 at 00:00 Aspirin (Aspirin) 81 mg DAILY PO Last administered on 03/28/18at 08:19; Admin Dose 81 MG; Start 03/28/18 at 09:00 Amlodipine Besylate (Norvasc) 10 mg DAILY PO Last administered on 03/28/18at 08:20; Admin Dose 10 MG; Start 03/27/18 at 11:30 Losartan Potassium (Cozaar) 100 mg DAILY PO Last administered on 03/28/18at 08:20; Admin Dose 100 MG; Start 03/27/18 at 11:30 Metoprolol Tartrate (Lopressor) 25 mg BID PO Last administered on 03/28/18at 08:19; Admin Dose 25 MG; Start 03/27/18 at 11:30 Insulin Glargine (Lantus) 17 units DAILY@0800 SC Last administered on 03/28/18at 08:16; Admin Dose 17 UNITS; Start 03/28/18 at 08:00 LESLY ACKERMAN MD Mar 28, 2018 09:01
[2018-03-28] MEDS ORDERED: INSULIN GLARGINE [LANTus] (100 UNITS/ML) SYG SC ONE (10:00)
[2018-03-28] MEDS: ACCU-CHEK XX SCH ×3 (10:52→20:35)
--- NOTE | 2018-03-28 13:00 | NUR ---
PT Evaluation Therapy day number 1 Evaluation Start Time 13:00 Evaluation End Time 13:45 Evaluation Total Time 45 min Subjective Denies pain Pain Scale NUMERIC Pain Intensity 0 (0-10) Patient Stated Goal for Pain Relief 0 (0-10) Pain Level Comment no pain Pre Treatment Vital Signs Stable Yes - BP 127/72, HR 67 Supine to Sit Modified Independent Transfer Sit to Stand Ability Modified Independent Bed Mobility Sit to Supine Modified Independent Bed Transfer Ability Modified Independent Chair Transfer Ability Modified Independent Gait Assist Levels Modified Independent Assistive Devices None Ambulation Distance 150 feet Static Sitting Balance Good Dynamic Sitting Balance Good Standing Static Balance Fair plus Dynamic Standing Balance Fair plus Safety Judgement Good Activity Tolerance Good Post Treatment Pain Intensity 0 0-10 Total Minutes 45 Total Units 3 PT Technical Record Comment 67 yo male presents with generalized weakness, SOB, HTN, hyperglycemia, dehydration, was found to have acute on chronic renal disease stage III. PMHx: DM2 with diabetic neuropathy and ophthalmopathy, Ischemic heart disease angina status post PTCA, Atherosclerotic cardiovascular disease, Irregular heartbeats, s/p cataract ectomy, COPD, Congestive heart failure systolic and diastolic, Dyslipidemia, OA, LBP, anxiety, depression, BPH dysuria and incontinence Precautions: None PLOF: Pt reports living in a 1st floor apartment with 1 step to enter, Kisha with no AD. Pt lives with his who is available day and night to assist. Limited community ambulator for 3-5 years. S: Pt found supine in bed with his at bedside, is agreeable to PT. RN cleared pt for activity. O: PT evaluation complete, pt assisted back to bed with call light nearby, bed alarm on, all needs met. Pt was Kisha for all mobility, able to ambulate 150' Kisha with no AD. Pt ambulated with reciprocal steps, equal step length, upright posture, no LOB, then c/o fatigue and returned to bed. No reports of pain, dizziness, nausea during activity. Pt reports chronic neuropathy in B feet and "not feeling normal yet," however pt is adamant that "walking feels fine" except for the neuropathy and increased fatigue. Offered stair training, pt refused. RN informed of pt response to activity. A: Pt demonstrates fair-good mobility, strength, endurance, coordination throughout, and is limited by fatigue and chronic neuropathy in bilateral feet. Pt is close to his baseline, demonstrates Kisha with all mobility and can improve with routine care. Pt does not need skilled inpatient PT at this time. P: Discharge physical therapy. No DME required at this time. Recommendation: Discharge to home with family assist when medically cleared by MD.
--- NOTE | 2018-03-28 14:17 | CONS ---
Assessment/Plan Assessment/Plan Assessment/Plan (Daily) # Acute on chronic renal failure Renal function improved Renal ultrasound normal Proteinuria on UA, Quant pending Continue to monitor # Hypertensive urgency Blood pressure is improve Meds reviewed, continue same and monitor # Diabetes mellitus Elevated blood sugars noted Insulin dose already adjusted Consultation Date/Type/Reason Admit Date/Time Mar 28, 2018 at 09:18 Initial Consult Date 03/27/18 Type of Consult Nephrology Requesting Provider: LESLY ACKERMAN MD Date/Time of Note DATE: 03/28/18 TIME: 14:14 24 HR Interval Summary Free Text/Dictation Alert, no complaints Exam/Review of Systems Exam Vitals Vital Signs Date Temp Pulse Resp B/P (MAP) Pulse Ox O2 O2 Flow FiO2 Time Delivery Rate 03/28/18 98.3 67 18 150/70 93 11:32 (96) 03/27/18 Room Air 20:00 Intake and Output 03/27/18 03/27/18 03/28/18 1515:00 23:00 07:00 IntakeIntake Total 950 ml 980 ml BalanceBalance 950 ml 980 ml Constitutional: alert Neck: No jvd Respiratory: clear to auscultation Cardiovascular: regular rate and rhythm Gastrointestinal: soft, non-tender Extremities: No edema Results Result Diagram: 03/28/18 0529 03/28/18 0529 Results 24hrs Laboratory Tests Test 03/27/18 17:13 03/27/18 20:27 03/28/18 05:29 03/28/18 07:54 Bedside Glucose 295 H 362 H 393 H White Blood Count 7.2 Red Blood Count 5.32 Hemoglobin 15.1 Hematocrit 46.9 Mean Corpuscular 88.2 Volume Mean Corpuscular 28.4 L Hemoglobin Mean Corpuscular 32.2 Hemoglobin Concent Red Cell 14.1 Distribution Width Platelet Count 218 Mean Platelet Volume 11.4 H Immature 1.700 H Granulocytes % Neutrophils % 60.0 Lymphocytes % 23.5 Monocytes % 11.6 H Eosinophils % 2.1 Basophils % 1.1 Nucleated Red Blood 0.0 Cells % Immature 0.120 H Granulocytes # Neutrophils # 4.3 Lymphocytes # 1.7 Monocytes # 0.8 Eosinophils # 0.2 Basophils # 0.1 Nucleated Red Blood 0.0 Cells # Sodium Level 140 Potassium Level 5.0 Chloride Level 99 Carbon Dioxide Level 24 Anion Gap 17 H Blood Urea Nitrogen 37 H Creatinine 1.83 H Est Glomerular 37 L Filtrat Rate mL/min Glucose Level 373 H Calcium Level 9.2 Phosphorus Level 4.0 Magnesium Level 2.0 Test 03/28/18 10:52 03/28/18 12:08 03/28/18 14:09 Bedside Glucose 270 H 275 H 181 Medications Medication Current Medications Clonidine HCl (Catapres-Tts 2 Patch) 1 patch Q7D TRANSDERM Last administered on 03/27/18at 00:41; Admin Dose 1 PATCH; Start 03/26/18 at 23:30 Docusate Sodium (Colace) 100 mg BID PO Last administered on 03/28/18at 08:19; Admin Dose 100 MG; Start 03/26/18 at 23:30 Gabapentin (Neurontin) 200 mg TID PO Last administered on 03/28/18at 13:06; Admin Dose 200 MG; Start 03/27/18 at 09:00 Hydralazine HCl (Apresoline) 25 mg Q8H PRN PO ELEVATED SYSTOLIC BP Last administered on 03/27/18at 11:32; Admin Dose 25 MG; Start 03/26/18 at 23:30 Miscellaneous Information 1 ea NOTE XX ; Start 03/27/18 at 00:00 Glucose (Glutose) 15 gm Q15M PRN PO DECREASED GLUCOSE; Start 03/27/18 at 00:00 Glucose (Glutose) 22.5 gm Q15M PRN PO DECREASED GLUCOSE; Start 03/27/18 at 00:00 Dextrose (D50w Syringe) 25 ml Q15M PRN IV DECREASED GLUCOSE; Start 03/27/18 at 00:00 Dextrose (D50w Syringe) 50 ml Q15M PRN IV DECREASED GLUCOSE; Start 03/27/18 at 00:00 Glucagon (Glucagen) 1 mg Q15M PRN IM DECREASED GLUCOSE; Start 03/27/18 at 00:00 Glucose (Glutose) 15 gm Q15M PRN BUCCAL DECREASED GLUCOSE; Start 03/27/18 at 00:00 Aspirin (Aspirin) 81 mg DAILY PO Last administered on 03/28/18at 08:19; Admin Dose 81 MG; Start 03/28/18 at 09:00 Amlodipine Besylate (Norvasc) 10 mg DAILY PO Last administered on 03/28/18at 08:20; Admin Dose 10 MG; Start 03/27/18 at 11:30 Losartan Potassium (Cozaar) 100 mg DAILY PO Last administered on 03/28/18at 08:20; Admin Dose 100 MG; Start 03/27/18 at 11:30 Metoprolol Tartrate (Lopressor) 25 mg BID PO Last administered on 03/28/18at 08:19; Admin Dose 25 MG; Start 03/27/18 at 11:30 Insulin Glargine (Lantus) 30 units DAILY@0800 SC ; Start 03/29/18 at 08:00 Insulin Glargine (Lantus) 30 units DAILY@2300 SC ; Start 03/28/18 at 23:00 Insulin Aspart (Novolog Insulin Pen) 15 unit WITH MEALS SC Last administered on 03/28/18at 12:10; Admin Dose 15 UNIT; Start 03/28/18 at 12:00 Diagnostic Test (Pha) (Accu-Chek) 1 ea 2 HOURS AFTER MEALS XX Last administered on 03/28/18at 14:10; Admin Dose 1 EA; Start 03/28/18 at 10:00 UBALDO HERNANDEZ MD Mar 28, 2018 14:17
--- NOTE | 2018-03-28 18:28 | NUR ---
EOSS: Awake in bed, no distress, denies discomfort during this shift. Patient ambulates to the bathroom with steady gait. Kept patient comfortable at all times. Addendum: 03/28/18 at 1833 by HEMANTH LONDONO RN Will endorse to incoming nurse.
[2018-03-29] VITALS (9 sets, daily range): BP systolic 117–143; BP diastolic 53–80; PULSE 61–69; RESP 18–20
[2018-03-29] MEDS ORDERED: INSULIN GLARGINE [LANTus] (100 UNITS/ML) SYG SC ONE
--- NOTE | 2018-03-29 07:33 | NUR ---
EOSS: Pt. a/ox4. Pt, denied any pain or discomfort. Pt able to ambulate. Hourly rounding completed. Call light within reach. Pt sleeping comfortably in bed throughout the night. Will endorse continuity of care to day shift.
[2018-03-29] MEDS: INSULIN ASPART [NOVOLOG] 3 ML PEN SC SCH ×3 (07:37→17:21)
[2018-03-29] MEDS: INSULIN GLARGINE [LANTus] (100 UNITS/ML) SYG SC SCH (07:37)
[2018-03-29] MEDS: AMLODIPINE 10 MG TAB PO SCH (09:17)
[2018-03-29] MEDS: DOCUSATE SODIUM 100 MG CAP PO SCH ×2 (09:17→20:10)
[2018-03-29] MEDS: GABAPENTIN 100 MG CAP PO SCH ×3 (09:17→20:13)
[2018-03-29] MEDS: METOPROLOL 25 MG TAB PO SCH ×2 (09:18→20:11)
[2018-03-29] MEDS: LOSARTAN 50 MG TAB PO SCH (09:18)
[2018-03-29] MEDS: ASPIRIN 81 MG TAB PO SCH (09:20)
[2018-03-29] MEDS: ACCU-CHEK XX SCH ×3 (10:18→20:24)
--- NOTE | 2018-03-29 10:46 | CONS ---
Assessment/Plan Assessment/Plan Hospital Course (Demo Recall) HTN urgency: BP here 160s but up to 230 recently. Controlled now Acute on chronic renal failure: Last known Cr to me was 1.4 from labs 2017. On admission 2.3 now improved to 1.6. Likely dehydration due to poor PO intake and HCTZ DM HTN -amlodipine 10mg (pt notes it caused him edema in the past. Can d/c with hydralazine 50mg PO BID instead) -losartan 100mg -hold HCTZ -continue metoprolol 25mg BID -continue clonidine patch -ok for d/c from cardiac perspective Consultation Date/Type/Reason Admit Date/Time Mar 28, 2018 at 09:18 Initial Consult Date 03/27/18 Type of Consult Cardiology Requesting Provider: LESLY ACKERMAN MD Date/Time of Note DATE: 03/29/18 TIME: 10:44 24 HR Interval Summary Free Text/Dictation No events. Cr continues to improve. Some dizziness upon standing today. BP c ontrolled. Exam/Review of Systems Exam Vitals Vital Signs Date Temp Pulse Resp B/P (MAP) Pulse Ox O2 O2 Flow FiO2 Time Delivery Rate 03/29/18 61 08:01 03/29/18 98.2 18 143/72 98 07:34 (95) 03/27/18 Room Air 20:00 Intake and Output 03/28/18 03/28/18 03/29/18 1515:00 23:00 07:00 IntakeIntake Total 900 ml BalanceBalance 900 ml Constitutional: alert, oriented Psych: no complaints, nl mood/affect Head: normocephalic, atraumatic Neck: supple; No jvd Respiratory: diminished breath sounds; No clear to auscultation Cardiovascular: regular rate and rhythm; No edema Gastrointestinal: soft, non-tender; No distended Neurological: nl mental status, nl speech Results Result Diagram: 03/29/18 0541 03/29/18 0541 Results 24hrs Laboratory Tests Test 03/28/18 10:52 03/28/18 12:08 03/28/18 14:09 03/28/18 17:31 Bedside Glucose 270 H 275 H 181 131 Test 03/28/18 20:33 03/28/18 23:19 03/29/18 03:01 03/29/18 05:41 Bedside Glucose 235 H 294 H 199 White Blood Count 7.5 Red Blood Count 4.84 Hemoglobin 13.8 L Hematocrit 42.7 Mean Corpuscular 88.2 Volume Mean Corpuscular 28.5 L Hemoglobin Mean Corpuscular 32.3 Hemoglobin Concent Red Cell 14.1 Distribution Width Platelet Count 209 Mean Platelet Volume 11.3 H Immature 1.500 H Granulocytes % Neutrophils % 55.7 Lymphocytes % 28.9 Monocytes % 10.7 Eosinophils % 2.0 Basophils % 1.2 Nucleated Red Blood 0.0 Cells % Immature 0.110 H Granulocytes # Neutrophils # 4.2 Lymphocytes # 2.2 Monocytes # 0.8 Eosinophils # 0.2 Basophils # 0.1 Nucleated Red Blood 0.0 Cells # Sodium Level 140 Potassium Level 5.0 Chloride Level 104 Carbon Dioxide Level 27 Anion Gap 9 # Blood Urea Nitrogen 34 H Creatinine 1.60 H Est Glomerular 43 L Filtrat Rate mL/min Glucose Level 155 # Calcium Level 9.1 Test 03/29/18 07:25 03/29/18 10:19 Bedside Glucose 118 154 Medications Medication Current Medications Clonidine HCl (Catapres-Tts 2 Patch) 1 patch Q7D TRANSDERM Last administered on 03/27/18at 00:41; Admin Dose 1 PATCH; Start 03/26/18 at 23:30 Docusate Sodium (Colace) 100 mg BID PO Last administered on 03/29/18at 09:17; Admin Dose 100 MG; Start 03/26/18 at 23:30 Gabapentin (Neurontin) 200 mg TID PO Last administered on 03/29/18at 09:17; Admin Dose 200 MG; Start 03/27/18 at 09:00 Hydralazine HCl (Apresoline) 25 mg Q8H PRN PO ELEVATED SYSTOLIC BP Last administered on 03/27/18at 11:32; Admin Dose 25 MG; Start 03/26/18 at 23:30 Miscellaneous Information 1 ea NOTE XX ; Start 03/27/18 at 00:00 Glucose (Glutose) 15 gm Q15M PRN PO DECREASED GLUCOSE; Start 03/27/18 at 00:00 Glucose (Glutose) 22.5 gm Q15M PRN PO DECREASED GLUCOSE; Start 03/27/18 at 00:00 Dextrose (D50w Syringe) 25 ml Q15M PRN IV DECREASED GLUCOSE; Start 03/27/18 at 00:00 Dextrose (D50w Syringe) 50 ml Q15M PRN IV DECREASED GLUCOSE; Start 03/27/18 at 00:00 Glucagon (Glucagen) 1 mg Q15M PRN IM DECREASED GLUCOSE; Start 03/27/18 at 00:00 Glucose (Glutose) 15 gm Q15M PRN BUCCAL DECREASED GLUCOSE; Start 03/27/18 at 00:00 Aspirin (Aspirin) 81 mg DAILY PO Last administered on 03/29/18 09:20; Admin Dose 81 MG; Start 03/28/18 at 09:00 Amlodipine Besylate (Norvasc) 10 mg DAILY PO Last administered on 03/29/18 09:17; Admin Dose 10 MG; Start 03/27/18 at 11:30 Losartan Potassium (Cozaar) 100 mg DAILY PO Last administered on 03/29/18 09:18; Admin Dose 100 MG; Start 03/27/18 at 11:30 Metoprolol Tartrate (Lopressor) 25 mg BID PO Last administered on 03/29/18 09:18; Admin Dose 25 MG; Start 03/27/18 at 11:30 Insulin Glargine (Lantus) 30 units DAILY@0800 SC Last administered on 03/29/18 07:37; Admin Dose 30 UNITS; Start 03/29/18 at 08:00 Diagnostic Test (Pha) (Accu-Chek) 1 ea 2 HOURS AFTER MEALS XX Last administere d on 03/28/18at 20:35; Admin Dose 1 EA; Start 03/28/18 at 10:00 Insulin Aspart (Novolog Insulin Pen) 17 unit WITH MEALS SC Last administered on 03/29/18at 07:37; Admin Dose 17 UNIT; Start 03/29/18 at 08:00 Insulin Glargine (Lantus) 50 units DAILY@2300 SC ; Start 03/29/18 at 23:00 TIMMY BUSTAMANTE Mar 29, 2018 10:46
--- NOTE | 2018-03-29 12:18 | NUR ---
NURSES NOTES: PTS LATEST POC GLUCOSE 256-PT STATED JUST ATE A PIZZA BROUGHT IN FROM HOME. EDUCATED PATIENT ABOUT EATING A CARB CONTROLLED DIET. HOWEVER PT REFUSED TEACHING. WILL MAKE AWARE.
--- NOTE | 2018-03-29 14:23 | NUR ---
NURSES NOTES: POST PRANDIAL POC GLUCOSE 216- DR. ACKERMAN AT BEDSIDE AND AWARE. WILL CONTINUE TO MONITOR AND ASSESS PT THROUGHOUT THE SHIFT
--- NOTE | 2018-03-29 14:31 | PN ---
Date/Time of Note Date/Time of Note DATE: 03/29/18 TIME: 14:27 Assessment/Plan VTE Prophylaxis Risk score (from Ns)>0 risk: 4 SCD applied (from [facility] [place]): No SCD contraindicated: low risk/ambulating Pharmacological prophylaxis: LMWH Lines/Catheters IV Catheter Type (from [facility]): [place] line still needed: No Urinary Cath still in place: No Reason Cath still needed: urinary retention Assessment/Plan Assessment/Plan 1. Acute on chronic kidney disease stage III- improving 2. 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 Atherosclerotic cardiovascular disease 5. Irregular heartbeats 6. Unstable gait 7. Status post cataract ectomy 8. COPD 9. Congestive heart failure systolic and diastolic 10. Dizziness 11. Dyslipidemia 12. Hypertensive heart disease none controlled mainly due to noncompliance 13. Osteoarthritis of multiple joints 14. Low back pain 15. Hemorrhoidal disease 16. Anxiety with panic attacks 17. Claustrophobia 18. Major depression with worsening of memory 19. BPH with dysuria and incontinence 20.Recurrent uti's 21.Incomplete data. Result Diagram: 03/29/18 0541 03/29/18 0541 Results 24hrs Laboratory Tests Test 03/28/18 17:31 03/28/18 20:33 03/28/18 23:19 03/29/18 03:01 Bedside Glucose 131 235 H 294 H 199 Test 03/29/18 05:41 03/29/18 07:25 03/29/18 10:19 03/29/18 12:03 White Blood Count 7.5 Red Blood Count 4.84 Hemoglobin 13.8 L Hematocrit 42.7 Mean Corpuscular 88.2 Volume Mean Corpuscular 28.5 L Hemoglobin Mean Corpuscular 32.3 Hemoglobin Concent Red Cell 14.1 Distribution Width Platelet Count 209 Mean Platelet Volume 11.3 H Immature 1.500 H Granulocytes % Neutrophils % 55.7 Lymphocytes % 28.9 Monocytes % 10.7 Eosinophils % 2.0 Basophils % 1.2 Nucleated Red Blood 0.0 Cells % Immature 0.110 H Granulocytes # Neutrophils # 4.2 Lymphocytes # 2.2 Monocytes # 0.8 Eosinophils # 0.2 Basophils # 0.1 Nucleated Red Blood 0.0 Cells # Sodium Level 140 Potassium Level 5.0 Chloride Level 104 Carbon Dioxide Level 27 Anion Gap 9 # Blood Urea Nitrogen 34 H Creatinine 1.60 H Est Glomerular 43 L Filtrat Rate mL/min Glucose Level 155 # Calcium Level 9.1 Bedside Glucose 118 154 256 H Test 03/29/18 14:21 Bedside Glucose 216 Subjective 24 Hr Interval Summary Free Text/Dictation I cannot walk straight. I feel my heart is beating irregular. I am getting tired easily. No new episode of fall. Long time I did not sleep so well. My blood sugar is better controlled. Patient did disclose that he is not eating hospital food and he order special food which she is prepared with [employer] containing a large amount of cheese along with egg breath and always. According to the patient this is his main food which he likes to eat and measurement after that fourth after 2 hours was blood sugar was 250. Difficult to estimate amount of calorie he consumed but it will be close to 2000 according to the estimation by his description. Going to talk with the family trying to make some kind of arrangement after calculation of amount of calories that food contains. Constitutional: chills, requiring O2; No no complaints, No improved, No diaphoresis, No disoriented, No febrile, No requiring IVF, No other Eyes: redness; No no complaints, No pain, No discharge, No visual change, No other ENT: No no complaints, No bleeding, No pain, No congestion, No discharge, No dysphagia, No sore throat, No other Respiratory: cough, pleuritic pain, shortness of breath; No no complaints, No pain, No sputum, No wheezing, No other Cardiovascular: chest pain; No no complaints, No edema, No lightheadedness, No orthopenea, No palpitations, No paroxysmal nocturnal dyspnea, No other Gastrointestinal: pain, constipation, flatus, nausea, passing stool; No no complaints, No blood, No decreased appetite, No diarrhea, No vomiting, No other Genitourinary: dysuria, flank pain; No no complaints, No bleeding, No discharge, No hematuria, No other Musculoskeletal: back pain, bone/joint pain; No no complaints, No neck pain, No restricted range of motion, No swelling, No other Exam/Review of Systems Exam Vitals Vital Signs Date Temp Pulse Resp B/P (MAP) Pulse Ox O2 O2 Flow FiO2 Time Delivery Rate 03/29/18 63 12:01 03/29/18 98.0 20 138/73 98 11:58 (94) 03/27/18 Room Air 20:00 Intake and Output 03/28/18 03/28/18 03/29/18 1515:00 23:00 07:00 IntakeIntake Total 900 ml BalanceBalance 900 ml Constitutional: alert, oriented, well developed, distress, frail, obese, other Psych: anxiety, depression; No no complaints, No nl mood/affect, No confusion, No suicidal, No other Head: normocephalic, atraumatic; No lacerations, No hematomas, No other Eyes: EOMI, nl lids; No nl conjunctiva, No nl sclera, No PERRL, No icteric, No fundi, disc, No other ENMT: No nl external ears & nose, No nl lips & teeth, No nl nasal mucosa & septum, No mucosa pink and moist, No intubated, No tympanic membranes, No other Neck: bruits, nuchal rigidity; No supple, No non-tender, No jvd, No masses, No thyromegaly, No other Respiratory: clear to auscultation, normal air movement, diminished breath sounds; No congested cough, No crackles/rales, No intercostal retraction, No labored breathing, No respirations, No tactile fremitus, No wheezing, No other Cardiovascular: regular rate and rhythm, bruits, jugular venous distention (JVD), murmurs/extra sounds, systolic murmur; No nl pulses, No diastolic murmur, No edema, No gallop, No irregular rhythm, No rub, No S3, No S4, No other Gastrointestinal: soft, nl liver, spleen, bowel sounds, other (Distended mildly painful and epigastric region); No non-tender, No ascites, No distended, No firm, No hepatomegaly, No mass, No rebound or guarding, No splenomegaly, No surgical scars, No tender Genitourinary - Male: nl penis ( with no rebound), nl scrotum Musculoskeletal: joint tenderness, muscle tone, muscle weakness (No ascitic fluid was detected.); No nl extremities to inspection, No nl gait and stance, No range of motion, No spine non-tender, No swelling, No other Extremities: normal pulses; No calf tenderness, No cyanosis, No clubbing, No edema, No pitting pedal edema, No palpable cord, No tenderness, No other Neurological: TICKETING AGENT II-XII intact, confused (On and off but now less severe.); No nl mental status, No nl speech, No nl strength, No DTR's symmetric, No focal weakness, No lethargic, No numbness, No reflexes, No unresponsive, No other Skin: nl turgor; No rash or lesions, No diaphoresis, No ecchymosis, No laceration, No pun cture, No other Lymph: nl lymph nodes; No enlarged, No nontender, No other Results Results 24hrs Laboratory Tests Test 03/28/18 17:31 03/28/18 20:33 03/28/18 23:19 03/29/18 03:01 Bedside Glucose 131 235 H 294 H 199 Test 03/29/18 05:41 03/29/18 07:25 03/29/18 10:19 03/29/18 12:03 White Blood Count 7.5 Red Blood Count 4.84 Hemoglobin 13.8 L Hematocrit 42.7 Mean Corpuscular 88.2 Volume Mean Corpuscular 28.5 L Hemoglobin Mean Corpuscular 32.3 Hemoglobin Concent Red Cell 14.1 Distribution Width Platelet Count 209 Mean Platelet Volume 11.3 H Immature 1.500 H Granulocytes % Neutrophils % 55.7 Lymphocytes % 28.9 Monocytes % 10.7 Eosinophils % 2.0 Basophils % 1.2 Nucleated Red Blood 0.0 Cells % Immature 0.110 H Granulocytes # Neutrophils # 4.2 Lymphocytes # 2.2 Monocytes # 0.8 Eosinophils # 0.2 Basophils # 0.1 Nucleated Red Blood 0.0 Cells # Sodium Level 140 Potassium Level 5.0 Chloride Level 104 Carbon Dioxide Level 27 Anion Gap 9 # Blood Urea Nitrogen 34 H Creatinine 1.60 H Est Glomerular 43 L Filtrat Rate mL/min Glucose Level 155 # Calcium Level 9.1 Bedside Glucose 118 154 256 H Test 03/29/18 14:21 Bedside Glucose 216 Medications Medication Current Medications Clonidine HCl (Catapres-Tts 2 Patch) 1 patch Q7D TRANSDERM Last administered on 03/27/18at 00:41; Admin Dose 1 PATCH; Start 03/26/18 at 23:30 Docusate Sodium (Colace) 100 mg BID PO Last administered on 03/29/18at 09:17; Admin Dose 100 MG; Start 03/26/18 at 23:30 Gabapentin (Neurontin) 200 mg TID PO Last administered on 03/29/18at 12:57; Admin Dose 200 MG; Start 03/27/18 at 09:00 Hydralazine HCl (Apresoline) 25 mg Q8H PRN PO ELEVATED SYSTOLIC BP Last administered on 03/27/18at 11:32; Admin Dose 25 MG; Start 03/26/18 at 23:30 Miscellaneous Information 1 ea NOTE XX ; Start 03/27/18 at 00:00 Glucose (Glutose) 15 gm Q15M PRN PO DECREASED GLUCOSE; Start 03/27/18 at 00:00 Glucose (Glutose) 22.5 gm Q15M PRN PO DECREASED GLUCOSE; Start 03/27/18 at 00:00 Dextrose (D50w Syringe) 25 ml Q15M PRN IV DECREASED GLUCOSE; Start 03/27/18 at 00:00 Dextrose (D50w Syringe) 50 ml Q15M PRN IV DECREASED GLUCOSE; Start 03/27/18 at 00:00 Glucagon (Glucagen) 1 mg Q15M PRN IM DECREASED GLUCOSE; Start 03/27/18 at 00:00 Glucose (Glutose) 15 gm Q15M PRN BUCCAL DECREASED GLUCOSE; Start 03/27/18 at 00:00 Aspirin (Aspirin) 81 mg DAILY PO Last administered on 03/29/18at 09:20; Admin Dose 81 MG; Start 03/28/18 at 09:00 Amlodipine Besylate (Norvasc) 10 mg DAILY PO Last administered on 03/29/18at 09:17; Admin Dose 10 MG; Start 03/27/18 at 11:30 Losartan Potassium (Cozaar) 100 mg DAILY PO Last administered on 03/29/18at 09:18; Admin Dose 100 MG; Start 03/27/18 at 11:30 Metoprolol Tartrate (Lopressor) 25 mg BID PO Last administered on 03/29/18at 09:18; Admin Dose 25 MG; Start 03/27/18 at 11:30 Insulin Glargine (Lantus) 30 units DAILY@0800 SC Last administered on 03/29/18at 07:37; Admin Dose 30 UNITS; Start 03/29/18 at 08:00 Diagnostic Test (Pha) (Accu-Chek) 1 ea 2 HOURS AFTER MEALS XX Last administered on 03/29/18at 14:23; Admin Dose 1 EA; Start 03/28/18 at 10:00 Insulin Aspart (Novolog Insulin Pen) 17 unit WITH MEALS SC Last administered on 03/29/18at 12:17; Admin Dose 17 UNIT; Start 03/29/18 at 08:00 Insulin Glargine (Lantus) 50 units DAILY@2300 SC ; Start 03/29/18 at 23:00 LESLY ACKERMAN MD Mar 29, 2018 14:31
--- NOTE | 2018-03-29 14:34 | PDOCDIS ---
Discharge Instructions CONDITION [id number] Patient Condition: [id number] Guarded HOME CARE INSTRUCTIONS: [id number] Diet Instructions: [id number] Reduced Sodium ACTIVITY: [id number] Bathing Restrictions: [id number] Shower FOLLOW UP/APPOINTMENTS Follow-up Plan In [address] Ackerman In [address] Coon SCHOOL/WORK RELEASE May return to School/Work with: With Restrictions LESLY ACKERMAN MD Mar 29, 2018 14:34
--- NOTE | 2018-03-29 15:05 | CONS ---
Assessment/Plan Assessment/Plan Assessment/Plan (Daily) # Acute on chronic renal failure Renal function continues to improve Renal ultrasound normal Proteinuria on UA, Quant still pending Continue to monitor # Hypertensive urgency Blood pressure now controlled Meds reviewed, continue same and monitor # Diabetes mellitus Blood sugars improved Continue same insulin dosing Consultation Date/Type/Reason Admit Date/Time Mar 28, 2018 at 09:18 Initial Consult Date 03/27/18 Type of Consult Nephrology Requesting Provider: LESLY ACKERMAN MD Date/Time of Note DATE: 03/29/18 TIME: 15:03 24 HR Interval Summary Free Text/Dictation Alert, no complaints Exam/Review of Systems Exam Vitals Vital Signs Date Temp Pulse Resp B/P (MAP) Pulse Ox O2 O2 Flow FiO2 Time Delivery Rate 03/29/18 63 12:01 03/29/18 98.0 20 138/73 98 11:58 (94) 03/27/18 Room Air 20:00 Intake and Output 03/28/18 03/28/18 03/29/18 1515:00 23:00 07:00 IntakeIntake Total 900 ml BalanceBalance 900 ml Constitutional: alert Neck: No jvd Respiratory: clear to auscultation Cardiovascular: regular rate and rhythm Gastrointestinal: soft Extremities: No edema Results Result Diagram: 03/29/18 0541 03/29/18 0541 Results 24hrs Laboratory Tests Test 03/28/18 17:31 03/28/18 20:33 03/28/18 23:19 03/29/18 03:01 Bedside Glucose 131 235 H 294 H 199 Test 03/29/18 05:41 03/29/18 07:25 03/29/18 10:19 03/29/18 12:03 White Blood Count 7.5 Red Blood Count 4.84 Hemoglobin 13.8 L Hematocrit 42.7 Mean Corpuscular 88.2 Volume Mean Corpuscular 28.5 L Hemoglobin Mean Corpuscular 32.3 Hemoglobin Concent Red Cell 14.1 Distribution Width Platelet Count 209 Mean Platelet Volume 11.3 H Immature 1.500 H Granulocytes % Neutrophils % 55.7 Lymphocytes % 28.9 Monocytes % 10.7 Eosinophils % 2.0 Basophils % 1.2 Nucleated Red Blood 0.0 Cells % Immature 0.110 H Granulocytes # Neutrophils # 4.2 Lymphocytes # 2.2 Monocytes # 0.8 Eosinophils # 0.2 Basophils # 0.1 Nucleated Red Blood 0.0 Cells # Sodium Level 140 Potassium Level 5.0 Chloride Level 104 Carbon Dioxide Level 27 Anion Gap 9 # Blood Urea Nitrogen 34 H Creatinine 1.60 H Est Glomerular 43 L Filtrat Rate mL/min Glucose Level 155 # Calcium Level 9.1 Bedside Glucose 118 154 256 H Test 03/29/18 14:21 Bedside Glucose 216 Medications Medication Current Medications Clonidine HCl (Catapres-Tts 2 Patch) 1 patch Q7D TRANSDERM Last administered on 03/27/18at 00:41; Admin Dose 1 PATCH; Start 03/26/18 at 23:30 Docusate Sodium (Colace) 100 mg BID PO Last administered on 03/29/18at 09:17; Admin Dose 100 MG; Start 03/26/18 at 23:30 Gabapentin (Neurontin) 200 mg TID PO Last administered on 03/29/18at 12:57; Admin Dose 200 MG; Start 03/27/18 at 09:00 Hydralazine HCl (Apresoline) 25 mg Q8H PRN PO ELEVATED SYSTOLIC BP Last administered on 03/27/18at 11:32; Admin Dose 25 MG; Start 03/26/18 at 23:30 Miscellaneous Information 1 ea NOTE XX ; Start 03/27/18 at 00:00 Glucose (Glutose) 15 gm Q15M PRN PO DECREASED GLUCOSE; Start 03/27/18 at 00:00 Glucose (Glutose) 22.5 gm Q15M PRN PO DECREASED GLUCOSE; Start 03/27/18 at 00:00 Dextrose (D50w Syringe) 25 ml Q15M PRN IV DECREASED GLUCOSE; Start 03/27/18 at 00:00 Dextrose (D50w Syringe) 50 ml Q15M PRN IV DECREASED GLUCOSE; Start 03/27/18 at 00:00 Glucagon (Glucagen) 1 mg Q15M PRN IM DECREASED GLUCOSE; Start 03/27/18 at 00:00 Glucose (Glutose) 15 gm Q15M PRN BUCCAL DECREASED GLUCOSE; Start 03/27/18 at 00:00 Aspirin (Aspirin) 81 mg DAILY PO Last administered on 03/29/18at 09:20; Admin Dose 81 MG; Start 03/28/18 at 09:00 Amlodipine Besylate (Norvasc) 10 mg DAILY PO Last administered on 03/29/18at 09:17; Admin Dose 10 MG; Start 03/27/18 at 11:30 Losartan Potassium (Cozaar) 100 mg DAILY PO Last administered on 03/29/18 09:18; Admin Dose 100 MG; Start 03/27/18 at 11:30 Metoprolol Tartrate (Lopressor) 25 mg BID PO Last administered on 03/29/18 09:18; Admin Dose 25 MG; Start 03/27/18 at 11:30 Insulin Glargine (Lantus) 30 units DAILY@0800 SC Last administered on 03/29/18at 07:37; Admin Dose 30 UNITS; Start 03/29/18 at 08:00 Diagnostic Test (Pha) (Accu-Chek) 1 ea 2 HOURS AFTER MEALS XX Last administered on 03/29/18at 14:23; Admin Dose 1 EA; Start 03/28/18 at 10:00 Insulin Aspart (Novolog Insulin Pen) 17 unit WITH MEALS SC Last administered on 03/29/18at 12:17; Admin Dose 17 UNIT; Start 03/29/18 at 08:00 Insulin Glargine (Lantus) 50 units DAILY@2300 SC ; Start 03/29/18 at 23:00 UBALDO HERNANDEZ MD Mar 29, 2018 15:05
--- NOTE | 2018-03-29 18:20 | NUR ---
EOSS: PT SITTING UP IN BED EATING DINNER. NO S.S OF RESPIRATORY DISTRESS PT ON ROOM AIR. DENIES PAIN OR DISCOMFORT AT THIS TIME. PT CLEAN AND DRY. SEEN BY DR. ACKERMAN TODAY WITH ORDERS PLACED. PENDING D/C TO HOME IN AM 03/20/18. FALL AND SAFETY PRECAUTIONS IMPLEMENTED, CALL LIGHT WITHIN REACH ABLE TO MAKE NEEDS KNOWN. BED IN LOWEST POSITION BRAKES LOCKED. ROOM FREE OF CLUTTER. PERSONAL BELONGINGS PLACED CLOSE TO PATIENT. WILL ENDORSE PT TO DIRECTOR HEMATOLOGY RN ACCORDINGLY. Addendum: 03/29/18 at 1841 by TERRELL JONES RN PENDING D/C TO HOME IN AM 03/30/18
[2018-03-29] MEDS ORDERED: INSULIN GLARGINE [LANTus] (100 UNITS/ML) SYG SC SCH (23:00)
[2018-03-30] VITALS: BP 149/78; PULSE 62; PULSE 67; RESP 18
[2018-03-30 04:00] VITALS: BP 135/73; PULSE 63; PULSE 64; RESP 18
--- NOTE | 2018-03-30 06:45 | NUR ---
EOSS: Pt. a/o x4. Pt able to ambulate DC pending for today No significant changes noted Will endorse
[2018-03-30 07:51] VITALS: BP 152/88; PULSE 63; RESP 20
[2018-03-30] MEDS: INSULIN GLARGINE [LANTus] (100 UNITS/ML) SYG SC SCH (07:57)
[2018-03-30 08:01] VITALS: PULSE 63
[2018-03-30] MEDS: INSULIN ASPART [NOVOLOG] 3 ML PEN SC SCH (08:13)
[2018-03-30] MEDS: DOCUSATE SODIUM 100 MG CAP PO SCH (08:22)
[2018-03-30] MEDS: AMLODIPINE 10 MG TAB PO SCH (08:23)
[2018-03-30] MEDS: METOPROLOL 25 MG TAB PO SCH (08:23)
[2018-03-30] MEDS: ASPIRIN 81 MG TAB PO SCH (08:23)
[2018-03-30] MEDS: GABAPENTIN 100 MG CAP PO SCH (08:23)
[2018-03-30] MEDS: LOSARTAN 50 MG TAB PO SCH (08:24)
--- NOTE | 2018-03-30 08:37 | NUR ---
Diabetes Education Referral: R: Consider obtaining an HbA1c as a baseline; if obtained in the office please dictate in a note most recent result. Awaiting family to provide education. Addendum: 03/30/18 at 1350 by WILLIAM DEMARCO Was notified that pt's daughter would be at the bedside at 10:30. Arrived at 10:45, no daughter. Pt stated he has had T2DM for many many years. Dr. Avila is his PCP and manages his DM. Pt stated his levels are usually between 130-160s mg/dl, occasionally 250 mg/dl. Pt stated he knows what to do. Pt stated 80% of the time he eats healthy and thinks 20% unhealthy is "okay". Quickly reviewed his target BG, pt stated he did not want to go over his diet and how to adjust when his BG is elevated. Pt declined any resources. Pt stated he knows his body and thinks he is doing good.
--- NOTE | 2018-03-30 09:04 | CONS ---
Assessment/Plan Assessment/Plan Assessment/Plan 1. Renal function continues to improve, await Pr/Cr./ 2. Renal ultz and post void ultz noted 3. Can dc if ok with IM 4. CHO control is acceptable Consultation Date/Type/Reason Admit Date/Time Mar 28, 2018 at 09:18 Type of Consult Nephrology Date/Time of Note DATE: 03/30/18 TIME: 09:01 Respiratory: No shortness of breath Cardiovascular: No chest pain Gastrointestinal: no complaints Genitourinary: no complaints Exam/Review of Systems Vital Signs Vitals Vital Signs Date Temp Pulse Resp B/P (MAP) Pulse Ox O2 O2 Flow FiO2 Time Delivery Rate 03/30/18 98.2 63 20 152/88 99 07:51 (109) 03/27/18 Room Air 20:00 Intake and Output 03/29/18 03/29/18 03/30/18 1515:00 23:00 07:00 IntakeIntake Total 400 ml 650 ml 300 ml BalanceBalance 400 ml 650 ml 300 ml Exam Neck: No jvd Respiratory: clear to auscultation Cardiovascular: regular rate and rhythm Gastrointestinal: soft Extremities: No edema Labs Result Diagram: 03/29/18 0541 03/30/18 0510 Results 24hrs Laboratory Tests Test 03/29/18 10:19 03/29/18 12:03 03/29/18 14:21 03/29/18 17:18 Bedside Glucose 154 256 H 216 126 Test 03/29/18 20:09 03/30/18 00:01 03/30/18 05:10 03/30/18 07:48 Bedside Glucose 151 181 160 Sodium Level 139 Potassium Level 4.7 Chloride Level 105 Carbon Dioxide Level 24 Anion Gap 10 Blood Urea Nitrogen 28 H Creatinine 1.52 H Est Glomerular 46 L Filtrat Rate mL/min Glucose Level 228 H Calcium Level 8.7 Total Bilirubin 0.0 L Direct Bilirubin 0.00 Indirect Bilirubin 0.0 Aspartate Amino 26 Transf (AST/SGOT) Alanine 34 Aminotransferase (AL T/SGPT) Alkaline Phosphatase 100 Total Protein 6.0 L Albumin 3.2 L Globulin 2.80 Albumin/Globulin 1.14 Ratio Medications Medications Current Medications Clonidine HCl (Catapres-Tts 2 Patch) 1 patch Q7D TRANSDERM Last administered on 03/27/18at 00:41; Admin Dose 1 PATCH; Start 03/26/18 at 23:30 Docusate Sodium (Colace) 100 mg BID PO Last administered on 03/30/18 08:22; Admin Dose 100 MG; Start 03/26/18 at 23:30 Gabapentin (Neurontin) 200 mg TID PO Last administered on 03/30/18 08:23; Admin Dose 200 MG; Start 03/27/18 at 09:00 Hydralazine HCl (Apresoline) 25 mg Q8H PRN PO ELEVATED SYSTOLIC BP Last administered on 03/27/18 11:32; Admin Dose 25 MG; Start 03/26/18 at 23:30 Miscellaneous Information 1 ea NOTE XX ; Start 03/27/18 at 00:00 Glucose (Glutose) 15 gm Q15M PRN PO DECREASED GLUCOSE; Start 03/27/18 at 00:00 Glucose (Glutose) 22.5 gm Q15M PRN PO DECREASED GLUCOSE; Start 03/27/18 at 00:00 Dextrose (D50w Syringe) 25 ml Q15M PRN IV DECREASED GLUCOSE; Start 03/27/18 at 00:00 Dextrose (D50w Syringe) 50 ml Q15M PRN IV DECREASED GLUCOSE; Start 03/27/18 at 00:00 Glucagon (Glucagen) 1 mg Q15M PRN IM DECREASED GLUCOSE; Start 03/27/18 at 00:00 Glucose (Glutose) 15 gm Q15M PRN BUCCAL DECREASED GLUCOSE; Start 03/27/18 at 00:00 Aspirin (Aspirin) 81 mg DAILY PO Last administered on 03/30/18 08:23; Admin Dose 81 MG; Start 03/28/18 at 09:00 Amlodipine Besylate (Norvasc) 10 mg DAILY PO Last administered on 03/30/18 08:23; Admin Dose 10 MG; Start 03/27/18 at 11:30 Losartan Potassium (Cozaar) 100 mg DAILY PO Last administered on 03/30/18 08:24; Admin Dose 100 MG; Start 03/27/18 at 11:30 Metoprolol Tartrate (Lopressor) 25 mg BID PO Last administered on 03/30/18 08:23; Admin Dose 25 MG; Start 03/27/18 at 11:30 Insulin Glargine (Lantus) 30 units DAILY@0800 SC Last administered on 03/30/18 07:57; Admin Dose 30 UNITS; Start 03/29/18 at 08:00 Diagnostic Test (Pha) (Accu-Chek) 1 ea 2 HOURS AFTER MEALS XX Last administered on 03/29/18at 20:24; Admin Dose 1 EA; Start 03/28/18 at 10:00 Insulin Aspart (Novolog Insulin Pen) 17 unit WITH MEALS SC Last administered on 03/30/18at 08:13; Admin Dose 17 UNIT; Start 03/29/18 at 08:00 Insulin Glargine (Lantus) 50 units DAILY@2300 SC Last administered on 03/30/18at 00:06; Admin Dose 50 UNITS; Start 03/29/18 at 23:00 LIN LYNNE MD Mar 30, 2018 09:04
[2018-03-30] MEDS: ACCU-CHEK XX SCH (10:00)
--- NOTE | 2018-03-30 11:45 | NUR ---
pt is a/o x4, able to walk to bathroom , discharge instruction given and community health educator came to and teaching about Diabetic education , pt will have home health and will follow up his Doc 's appt in one week, pt left with family members with all his belongings.
[2018-03-30 12:36] VITALS: BP 155/92; PULSE 65; RESP 20
--- NOTE | 2018-03-30 13:06 | NUR ---
Nutrition consult: Pt DC before 24 hour consult window.
== END 2018-03-30 12:25 | disposition home or self-care (01) | DRG 683 ==
LOC: E/R 16:35 → 6WM 21:52 → OBSVTOIN 03-28 09:18
PROVIDERS: ADMIT Family Medicine; ATTEND Family Medicine
DX: N17.9 Acute kidney failure, unspecified (principal); I13.0 Hypertensive heart and chronic kidney disease with heart failure and stage 1 through stage 4 chronic kidney disease, or unspecified chronic kidney disease; I50.40 Unspecified combined systolic (congestive) and diastolic (congestive) heart failure; E11.65 Type 2 diabetes mellitus with hyperglycemia; E11.22 Type 2 diabetes mellitus with diabetic chronic kidney disease; N18.3 Chronic kidney disease, stage 3 (moderate); E11.21 Type 2 diabetes mellitus with diabetic nephropathy; E11.40 Type 2 diabetes mellitus with diabetic neuropathy, unspecified; E11.39 Type 2 diabetes mellitus with other diabetic ophthalmic complication; E78.5 Hyperlipidemia, unspecified; I25.10 Atherosclerotic heart disease of native coronary artery without angina pectoris; I16.0 Hypertensive urgency; N40.1 Benign prostatic hyperplasia with lower urinary tract symptoms; N39.498 Other specified urinary incontinence; F32.9 Major depressive disorder, single episode, unspecified; F40.240 Claustrophobia; F41.9 Anxiety disorder, unspecified; F41.0 Panic disorder [episodic paroxysmal anxiety]; K64.9 Unspecified hemorrhoids; M54.5 Low back pain; M19.90 Unspecified osteoarthritis, unspecified site; Z91.14 Patient's other noncompliance with medication regimen; R42 Dizziness and giddiness; R26.81 Unsteadiness on feet; Z98.61 Coronary angioplasty status
CPT/HCPCS: 36415; 70450; 71045; 76775; 76856; 80048; 80053; 81001; 81003; 82570; 82962; 83735; 84100; 84484; 85025; 85610; 85730; 93005; 93306; 96360; 96372; 97162; G0378; J1815; J7030; J7040